=== PATIENT | female | born 1995 | race Caucasian/White ===

== ENCOUNTER 2022-06-18 14:49 | Outpatient (CLI) | payer OTHER, SELFPAY ==
--- NOTE | 2022-06-18 15:00 | CRLHL7_ITS ---
For Patients: As a result of the Century Cures Act, medical imaging exams and procedure reports are released immediately into your electronic medical record. You may view this report before your referring provider. If you have questions, please contact your health care provider. INDICATION: f/u non-visualized facial structures COMPARISON: Ultrasound 06/03/2022 TECHNIQUE: Real time jacobo scale imaging of the fetus was performed. FINDINGS: Sonographic imaging demonstrates a single living intrauterine gestation. Fetus demonstrates a regular cardiac rate of 136 beats per minute. Fetus has a vertex position. The placenta lies posterior. Amniotic fluid volume appears normal. Single deepest vertical pocket: 4.5 cm. The nose, lips, and facial profile appear normal. IMPRESSION: Normal nose, lips and profile. Dictated by Bo Bonilla MD @ 06/19/2022 10:24:11 AM (Electronically Signed)
--- OUTSIDE RECORDS SUMMARY | 2022-06-18 15:17 | XMS_ITS | Clinical Summary ---
:1995 Author Organization [facility] [place] [address] Care Team Providers Name Role Phone Karen Haas MD Primary Care Provider Allergies Active Allergy Reactions Severity Noted Date Comments Cefprozil Rash Medium 07/29/2006 Medications Medication Sig Dispensed Refills Start Date End Date Status vit 28/iron Take 1 Tablet 90 Tablet 3 03/30/2022 Active fum/folic (multivitamin by mouth once folic acid 1 daily. mg) cholecalciferol (Vitamin Take 1 Capsule 90 Capsule 3 2 Active D-3) 2,000 unit (2,000 units) capsuleIndications: by mouth once Vitamin D deficiency daily. Active Problems Problem Noted Date Primigravida in first trimester 03/30/2022 Overview: EDC by 8 week US UTI on first ob labs Plan for Heidi to deliver History of genital herpes Genital herpes 03/06/2022 Insomnia, idiopathic 10/13/2021 Anxiety 05/04/2018 ADD (attention deficit disorder) without hyperactivity 08/24/2011 Estimated Date of Delivery Comments Yes 10/20/2022 Encounters Date Type Specialty Care Team Description 06/12/2022 Telephone Karen Haas Returni ng Call 06/03/2022 Hospital Encounter Karen Haas P rimigravida in first MD trimester 06/03/2022 Travel 06/03/2022 Telephone Karen Haas ROI (Re questing medical MD records be sent to new clinic) 06/01/2022 OB Encounter [facility] Ha[facility] (routine MD follow up) 06/01/2022 Travel 05/05/2022 Telephone Karen Haas Imaging (20 WEEK ANATOMY MD SCAN) 04/29/2022 OB Encounter Karen Haas [facility] MD 04/29/2022 Travel 03/30/2022 OB Encounter Karen Haas [facility] (11w 2d- MD initial) 03/30/2022 Travel from Last 3 Months Immunizations Name Administration Dates Next Due AMB Influenza, IIV3 (Age 6-35 mos) 06/06/2008 (Flu Clinic Only) AMB Influenza, IIV3 (Age >=3 05/11/2013, 04/30/2012, 010 years)(Flu Clinic Only) AMB Influenza, IIV4 PF (=>6 mos 06/16/2014 Flulaval,Fluzone Fluarix)(Flu Clinic Only) DTaP 12/19/2002 DTaP-HIB (TriHIBIT) 03/20/1999, 06/28/1998, 04/24/1998, 02/13/1998 Hepatitis A (Peds) 05/27/2015, 07/11/2014 Hepatitis B (Peds) 12/11/1998, 04/24/1998, 02/13/1998 Human Papilloma Virus Vaccine 02/08/2013, 07/07/2012, 2011 Inactivated Polio Vaccine 12/19/2002 Influenza A (H1N1), Inactivated 07/18/2009 Influenza, IIV3 (Age 6-35 mos) 07/11/1999, 06/03/1999 Influenza, IIV3 (Age >=3 years) 06/23/2011, 05/23/2007, 07/03, 06/08/2006 Influenza, IIV4 04/29/2022, 05/04/2018, 05/24/2016, 05/27/2015 MMR 03/19/2009, 12/19/2002, 03/20/1999 Meningococcal Vaccine (Menveo) 07/11/2014 Oral Polio Vaccine 12/11/1998, 04/24/1998, 02/13/1998 Pneumococcal conj 7-Valent (Prevnar 7) 05/24/2000 Tdap 04/07/2020, 03/19/2009 Varicella Vaccine 03/19/2009, 03/20/1999 Family History Medical History Relation Name Comments Heart Disease Brother 1 Diabetes Brother 2 Heart Disease Brother 3 murmur No Known Problems Daughter Heart Disease Father murmur No Known Problems Half-Brother No Known Problems Half-Sister Thyroid Disease Maternal Aunt X3 No Known Problems Maternal Grandfather No Known Problems Maternal Grandmother No Known Problems Maternal Uncle Asthma Mother Bronchiolitis Mother Diabetes Other cousin No Known Problems Paternal Aunt Brain cancer Paternal Grandfather No Known Problems Paternal Grandmother No Known Problems Paternal Uncle No Known Problems Sister No Known Problems Son Relation Name Status Comments Brother 1 Alive Brother 2 Brother 3 Daughter Father Alive Half-Brother Half-Sister Maternal Aunt Maternal Grandfather Alive Maternal Grandmother Maternal Uncle Mother Alive Other Paternal Aunt Paternal Grandfather Paternal Grandmother Alive Paternal Uncle Sister Alive Son Social History Tobacco Use Types Packs/Day Years Used Date Former Smoker Smokeless Tobacco: Never Used Tobacco Cessation: Counseling Given: Yes Alcohol Use Standard Drinks/Week Comments Not Currently 0 (1 standard drink = 0.6 oz pure alcoho l) Estimated Date of Delivery Comments Yes 10/20/2022 Sex Assigned at Date Recorded Not on file COVID-19 Exposure Response Date Recorded In the last 10 days, have you been in contact with No / Unsu re 06/03/2022 4:47 PM CDT someone who was confirmed or suspected to have Coronavirus/COVID-19? Obstetrics History Para Term AB IAB SAB Ectopic Multiple Living Live Births 1 0 0 0 0 0 0 0 0 0 0 Date Outcome GA Total Labor/2nd/3rd Weight Sex Delivery Anes PTL Adalgisa A 1 A5 Name Clin Labor Current OB Episode Summary Episode Dates Estimated Date of Pregravid Weight TWG (As of ) Delivery 03/06/2022 - Present 10/20/2022 (06/18/2022) Date GA Fund Present FHR Mvmt BP Weight Edema Alb Glu Ket Dil/Eff/S ta 03/13/2022 8w3d Inpatient data not d isplayed here. See encounter summary. 06/03/2022 20w1d Inpatient data not d isplayed here. See encounter summary. Progress Notes 06/01/2022 - 19w6d - Karen Haas MD Doing well. survey US this week. U DUY CULTURE rechecked today. Next visit in 4 weeks. She has decided to deliver in [place]. Plan for next visit in [address] Christian at [facility] in [place]. 04/29/2022 - 15w1d - Karen Haas MD Here with her partner. Feeling better. N ausea and fatigue have resolved. MSAFP discussed, paperwork completed and drawn today. Positive URINE CULTURE discussed, likely skin contaminant. Plan to recheck at next visit as she did not feel she co uld give a sample today. Next visit with me in 4 weeks. Plan for screening US in 4 weeks. 03/30/2022 - w6d - Karen Haas MD FIRST OB VISIT HPI: Lisa Esposito is a 26 y.o. fe male at 10w6d with blancas intrauterine here today for a initial OB exam. Estimated due date is Estimated Date of Delivery: [facility] She is here with her f Chilo wang. She is feeling somewhat better. The fatigue and nausea are improving. She has stopped her Adderall, Zoloft and Trazodone and feels her MH is fine and she is sleeping OK. She is managing her ADHD. We reviewed her OB labs which were notab le for a positive UTI. She was treated with augmentin, but only had 1/2 the medication and needs a refill to completed the antibiotics. Her US was reassuring. Nausea/Vomiting: yes Breast tenderness: yes Fatigue: yes Bleeding: no Taking vitamins: yes AMA: no Previous : no OB History Para Term AB Living 1 0 0 0 0 0 SAB IAB Ectopic Multiple Live Births 0 0 0 0 0 # Outcome Date GA Lbr Bradford/2nd Weight Sex Delivery Anes PTL Lv 1 Current Past Medical History: . Date ? ? Genital herpes ? ? No Significant Past Medical History Past Surgical History: . Laterality Date ? ? TONSIL AND ADENOIDECTOMY ? ? TYMPANOSTOMY ? ? TYMPANOSTOMY removal Family History Problem Relation Age of Onset ? ? Asthma Mother ? ? Bronchiolitis Mother ? ? Heart Disease Father murmur ? ? No Known Problems Sister ? ? Heart Disease Brother ? ? Diabetes Brother ? ? Heart Disease Brother murmur ? ? Thyroid Disease Maternal Aunt X3 ? ? Brain cancer Paternal Grandfather 69 ? ? Diabetes Other cousin Social History Tobacco Use ? ? Smoking status: Former Smoker ? ? Smokeless tobacco: Never Used Substance Use Topics ? ? Alcohol use: Not Currently Current Outpatient Medications Medication Sig ? ? amoxicillin-clavulanate 875-125 mg tablet (AUGMENTIN) Take 1 Tablet by mouth two times daily with meals for 5 days. ? ? cholecalciferol (Vitamin D-3) 2,000 unit capsule Take 1 Capsule (2,000 units) by mouth once daily. ? ? vit 28/iron fum/folic (multivitamin folic acid 1 mg) Take 1 Tablet by mouth once daily. No current facility-administered medicat ions for this visit. Medications have been reviewed by me and are current to the best of my knowledge and ability. ALLERGIES Cefprozil MENTAL HEALTH HISTORY History of psychiatric diagnosis: Anxiet y Current mental health provider: No Currently taking any psychiatric medicat ions? Not Applicable INFECTION HISTORY Current Drug Use: none Relevant infection history from OB [facility] ionnaire: none REVIEW OF SYSTEMS Comprehensive ROS complete and negative other than noted in HPI and on OB Questionnaire. PHYSICAL EXAM BP 100/62 (Cuff Site: Right Arm, Positio n: Sitting, Cuff Size: Adult Regular) Pulse 70 Wt 59.9 kg (132 lb) LMP 01/10/2022 (Exact Date) BMI 24.14 kg/m?? General Appearance: Alert, appropriate a ppearance for age. No acute distress. HEENT Exam: Grossly normal. Neck/Thyroid Exam: Supple, no masses, no martin or enlargement. Lungs: Clear to auscultation bilaterally . Breast Exam: Not indicated. Cardiovascular Exam: Regular rate and rh ythm. S1, S2, no murmur. Abd: Soft, non-tender, no masses or orga nomegaly. Skin: no rashes or lesions. Lymphatics: no nodes palpable. Psychiatric Exam: Alert and oriented x 3 , appropriate affect. ASSESSMENT/PLAN 26 y.o. at 10w6d with blancas intrauterine . ICD-10-CM 1. Primigravida in first trimester Z34.0 1 2. UTI (urinary tract infection), uncomp licated N39.0 amoxicillin-clavulanate 875-125 mg tablet (AUGMENTIN) 3. Vitamin D deficiency E55.9 cholecalci ferol (Vitamin D-3) 2,000 unit capsule 4. ADD (attention deficit disorder) with out hyperactivity F98.8 Satisfactory exam. Demonstrates appropriate and health-seeking behaviors toward her . Verbalizes good understanding of care schedule and the importance of coming to each visit as scheduled. Start/continue v itamins. Reviewed labs. She was encouraged to call the office with any questions or concerns. Body mass index is 24.14 kg/m??. Diet and expected weight gain discussed with patient. DEPRESSION SCREEN PHQ Score and Severity Intervention: Not Depressed Doing well OB labs reviewed. Vitamin D sent along with augmentin. Plan for OB visit with Dr. Gordon next [facility] and I will manage her until Dr. Gordon returns from maternity leave. Seek care if worsening MH. SAB reviewed. Karen Haas MD 03/06/2022 - 7w3d - Dinora Goodwin, RN See staff note. Dinora Goodwin RN .................. .. 03/06/2022 10:39 AM Last Filed Vital Signs Vital Sign Reading Time Taken Comments Blood Pressure 120/70 06/01/2022 5:51 PM CDT Pulse 80 06/01/2022 5:51 PM CDT Temperature 36.9 ??C (98.5 ??F) 10/13/2021 6:16 PM CDT Respiratory Rate 16 10/13/2021 6:16 PM CDT Oxygen Saturation 99% 06/01/2022 5:51 PM CDT Inhaled Oxygen Concentration - - Weight 67.4 kg (148 lb 8 oz) 06/01/2022 5:51 PM CDT Height 157.5 cm (5' 2) 03/06/2022 10:05 AM CDT Body Mass Index 27.16 03/06/2022 10:05 AM CDT Plan of Treatment Health Maintenance Due Date Last Done Comments COVID-19 vaccine series (3 - 06/07/2021 04/12/2021, 021 Booster for Pfizer series) Depression screening for age 12+ 12/03/2022 12/03/2021, , 08/06/2021, Additional history exists BMI (ht and wt on same day) for 03/06/2023 03/06/2022, 09/30, age 18+ 10/21/2020, Additional history exists Chlamydia for age 16-24 03/13/2023 03/13/2022, 10/13/2021, 10/21/2020, Additional history exists Pap test for age 21-65 10/22/2023 10/21/2020 Tetanus booster 04/07/2030 04/07/2020, 03/19/2009 HPV series for age 9-26 Completed 02/08/2013, 07/07/2012, 03/23/2012 Tdap Completed 04/07/2020, 03/19/2009 Hepatitis C screening for age Completed 03/13/2022 18-79 Influenza for age 9-49 Completed 04/29/2022, 05/04/2018, 05/24/2016, Additional history exists Procedures Procedure Name Priority Date/Time Associated Diagnosis Comme [facility] US OB BASIC Routine 06/03/2022 5:07 PM Primigravida in f irst Results for this ANATOMY SCREEN CDT trimester procedure are in SINGLE TA the results section. URINE CULTURE Routine 06/01/2022 6:08 PM Urinary tract Results for this CDT infection in mother procedur e are in during second the results trimester of section. AFP TETRA Routine 04/29/2022 12:21 Primigravida in Results for this PM CDT second trimester procedure a re in the results section. from Last 3 Months Results US OB BASIC ANATOMY SCREEN SINGLE TA (06/03/2022 5:07 PM CDT) Anatomical Region Laterality Modality , 2or 3 TRIMESTER Ult rasound Specimen (Source) Anatomical Collection Method Collection Time Re ceived Time Location / / Volume Laterality 06/04/2022 7:25 AM CDT Impressions 06/04/2022 7:25 AM CDT 1. Single fetus with ultrasound dating of 20 weeks 5 days, LILY 10/16/2022. There has been appropriate interval growth since the previous study. LILY on the previous ultrasound 10/20/2022. 2. No intrinsic abnormalities noted on a natomic survey. facial features were not optimally visualized. Dictated by Judd Jimenez MD @ 06/04/2022 7:25: 41 AM (Electronically Signed) Narrative 06/04/2022 7:25 AM CDT For Patients: ??As a result of the Cures Act, medical imaging exams and procedure report s are released immediately into your [facility] medical record. ??You may view this report before your referring provider. ??If you have questions, please contact your health care provider. INDICATION: Ultrasound of anatomy. TECHNIQUE: Ultrasound OB pelvis transabdominal. Donna l-time jacobo-scale imaging of the fetus was performed as well as color Doppler and spectral Doppler analysis of the umbilical artery. COMPARISON: 03/13/2022 FINDINGS: Sonographic imaging demonstrates a singl e living intrauterine gestation. Fetus demonstrates a regular cardiac rate of 138 beats per minute. Fetus has multiple position changes. The placenta lies posteri or without evidence of placenta previa. Amniotic fluid volume appears normal. Single deepest vertical pocket: 5.4 cm. Cervical length 4.5 cm. Cord S/D Doppler 2.7 which is normal. The composite ultrasound gestational age is calculated at 20 weeks 5 days with an estimated sonographic due date of 10/16/2022. The estimated weight is 364 grams which lies at the 71 %. The following biometric measurements wer e obtained: Biparietal diameter: 4.8 cm, 20 weeks 6 days. Head circumference: 18.2 cm, 20 weeks 5 days. Abdominal circumference: 15.7 cm, 21 wee ks 0 days. Femur length: 3.2 cm, 20 weeks 2 days. On anatomic survey, there is a normal ap pearance of the cerebral ventricles, cisterna magna and cerebellum. The nose and lips not well seen due to position, although the facial profile appears nor mal. The cervical, thoracic and lumbar s pines are well visualized and appear normal. There is a normal four-chamber heart and the left and right ventricular outflow tracts appear normal. diaphragm , stomach, kidneys and bladder appear no rmal. There is a normal three-vessel cord and cord insertion site. The four extremities appear normal. Procedure Note Art Jimenez MD - 06/04/2022F ormatting of this note might be different from the original. For Patients: As a result of the ntury Cures Act, medical imaging exams and procedure reports are released immediately into your electronic medical record. You may view this report before your referring provider. If you have questions, please contact [facility] care provider. INDICATION: Ultrasound of anatomy. TECHNIQUE: Ultrasound OB pelvis transabdominal. Donna l-time jacobo-scale imaging of the fetus was performed as well as color Doppler and spectral Doppler analysis of the umbilical artery. COMPARISON: 03/13/2022 FINDINGS: Sonographic imaging demonstrates a singl e living intrauterine gestation. Fetus demonstrates a regular cardiac rate of 138 beats per minute. Fetus has multiple position changes. The placenta lies posterior without evidence of placenta previa. Amniotic fl uid volume appears normal. Single deepest vertical pocket: 5.4 cm. Cervical length 4.5 cm. Cord S/D Doppler 2.7 which is normal. The composite ultrasound gestational age is calculated at 20 weeks 5 days with an estimated sonographic due date of 10/16/2022. The estimated weight is 364 grams which lies at the 71 %. The following biometric measurements wer e obtained: Biparietal diameter: 4.8 cm, 20 weeks 6 days. Head circumference: 18.2 cm, 20 weeks 5 days. Abdominal circumference: 15.7 cm, 21 wee ks 0 days. Femur length: 3.2 cm, 20 weeks 2 days. On anatomic survey, there is a normal ap pearance of the cerebral ventricles, cisterna magna and cerebellum. The nose and lips not well seen due to position, although the facial profile appears normal. The cervical, thoracic and lumbar spines are well visualized and appear normal. There is a normal four-chamber heart and the left and right ventricular outflow tracts appear normal. diaphragm, stomach, kidneys and bladder appear normal. There is a normal three-vessel cord and cord insertion site. The four extremities appear normal. IMPRESSION: 1. Single fetus with ultrasound dating o f 20 weeks 5 days, LILY 10/16/2022. There has been appropriate interval growth since the previous study. LILY on the previous ultrasound 10/20/2022. 2. No intrinsic abnormalities noted on a natomic survey. facial features were not optimally visualized. Dictated by Judd Jimenez MD @ 06/04/2022 7:25: 41 AM (Electronically Signed) Karen Haas MD (ABNORMAL) URINE CULTURE (06/01/2022 6:08 PM CDT) [facility] Method Time Signature CULTURE RESULT (A) 06/04/2022 [facility] 6:40 AM CDT [facility] TRAL LABORATORY CULTURE 50,000-100,000 06/04/2022 [facility] CFU/mL 6:40 AM CDT [facility] Escherichia TRAL coli LABORATORY Specimen Anatomical Collection Method Collection Time Receive d Time (Source) Location / / Volume Laterality Urine URINE SPECIMEN / Non-Blood / 06/01/2022 6:08 PM 06/01 6:08 Unknown Unknown CDT PM CDT Organism Antibiotic Method Susceptibility Escherichia coli TRIMETHOPRIM/SULF >=16/304: R Escherichia coli AMPICILLIN <=2: S Escherichia coli CEFAZOLIN-UC <=4: S Comment: Cefazolin-UC interp retations are for therapy of uncomplicated UTIs due to E.coli, K.pneumoniae, or P.m irablis. Cefazolin breakpoint is used as a surrogate to predict results for the oral agents - cefdinir, cefuroxime, and cephalexin, when used for therapy of uncompli cated UTIs due to E coli, K, pneumoniae, and P. mirabilis. The FDA recommend s cefadroxil susceptibility can be deduced from cefazolin. Escherichia coli GENTAMICIN <=1: S Escherichia coli CEFTRIAXONE <=1: S Escherichia coli CEFTAZIDIME <=1: S Escherichia coli LEVOFLOXACIN <=0.12: S Escherichia coli CIPROFLOXACIN <=0.25: S Escherichia coli PIPERACILLIN/TAZO <=4: S Escherichia coli AMPICILLIN/SULBACTAM <=2: S Escherichia coli CEFEPIME <=1: S Escherichia coli TOBRAMYCIN <=1: S Escherichia coli MEROPENEM <=0.25: S Escherichia coli NITROFURANTOIN 32: S Karen Haas MD MICROBIOLOGY Performing Organization Address City/State/ZIP Code Phon e Number [facility] [address] [place] [address] [facility] LABORATORY AFP TETRA [[id number]] (04/29/2022 12:21 PM CDT) [facility] Method Time Signature Results AFP Report 05/01/2022 [facility] 11:06 PM CDT [facility] Test Results *Screen 05/01/2022 [facility] AFP Negative* 11:06 PM CDT [facility] GA on Saravanan 15.1 WEEKS 05/01/2022 [facility] Date 11:06 PM T [facility] GA Based On LILY 05/01/2022 [facility] 11:06 PM CDT [facility] Comment: 10/20/2022 Mat [age] LILY [age] 05/01/2022 11:06 PM [facility] ([facility]) Race AFP 05/01/2022 11:06 PM [facility] Weight AFP 138 lbs 05/01/2022 11:06 PM [facility] Insulin Dep AFP No 05/01/2022 11:06 PM [facility] Multiple Gest AFP No 05/01/2022 11:06 PM [facility] AFP Value 20.2 ng/mL 05/01/2022 11:06 PM [facility] AFP MoM 0.61 05/01/2022 11:06 PM [facility] hCG Value 35094 mIU/mL 05/01/2022 11:06 PM [facility] hCG MoM 0.54 05/01/2022 11:06 PM [facility] uE3 Value 0.86 ng/mL 05/01/2022 11:06 PM [facility] uE3 MoM 1.05 05/01/2022 11:06 PM [facility] DAYANA Value 139.60 pg/mL 05/01/2022 11:06 PM [facility] DAYANA MoM 0.77 05/01/2022 11:06 PM [facility] OSBR Risk 1 IN AFP [id number] 05/01/2022 11:06 PM [facility] DSR 2nd [place] 1 [place] [id number] 05/01/2022 11:06 PM [facility] DSR By Age 1 IN 1039 05/01/2022 11:06 PM [facility] [facility] T18 Risk Not increased 05/01/2022 11:06 PM [facility] T18 By Age 1:4050 05/01/2022 11:06 PM [facility] Interp AFP Comment 05/01/2022 11:06 PM [facility] Comment: Interpretation: Screen Negative This result is screen negative for OSB, Down Syndrome and Trisomy 18. The AFP MoM and patient spec ific risks calculated are based on the gestational age and the cli nical information provided. This test can identify up to 80% of open neural tube defects. Closed neural tube defects and some open defects may not be detected by this test. ??The combination of mater nal age, AFP, hCG, uE3, and DAYANA identifies 75-80% of Down Synd moises. ??The combination of maternal age, AFP, hCG and uE3 identifie s 60% of Trisomy 18 pregnancies. ??The [place] [employer] b[employer]etric[employer]nec[employer] recommends amniocentesis be offered to w omen age 35 and older. Recalculations are not recommended when gestational dating by LMP and ultrasound are within 10 days. Comment AFP Comment 05/01/2022 11:06 PM CDT [facility] Comment: Christa Gauthier, Ph.D., [facility] Director References: Available Upon Request. Multiples Of Median Cutoffs ? Abbrev iation Definitions ?For AFP Elevations ?I DD- Insulin Dep Diabetes Blancas ??2.5 ?? Black ??2.8 ? OSB R- Open Spina Bifida IDD ?2.0 ?? Twins ??4.5 ?Risk DSR Cutoff 1:270 ? DSR- Down Syndrome Risk T18 Cutoff 1:100 ? T18- Trisomy 18 For further inquiries contact [employer] at [phone]. This test was developed and its performa nce characteristics determined by [employer]. It has not been c leared or approved by the Food and Drug Administration. Specimen Anatomical Collection Method / Collection Time Recei maribel Time (Source) Location / Volume Laterality Blood BLOOD SPECIMEN / Venipuncture / 04/29/2022 12:21 04/29 Unknown Unknown PM CDT 12:28 PM CDT Narrative [facility] - 05/01/2022 11:06 PM CDT Performed at: ??01 - [facility] [address] [facility], [place], [place] ??[address] [address] [employer] Worker: Milo [facility], Phone: ??[phone] Karen Gudelia Waldo MD SEND OUTS Performing Organization Address City/State/ZIP Code Phon e Number [facility] [address], [place] [address] [facility] ([facility]) from Last 3 Months Insurance Payer Benefit Plan / Subscriber ID Effective Dates Phone Addre ss Type Group [employer] [id number] 2020-Prese [address] [place] [address] [facility] [id number] 2019-Presen [address] [address] [place] [address] y L y (Home) ROMINA REYES [phone] [employer] Employer 06/12/1911 ATTN [employer] [id number] RESOURCES (Home) [address] [place] [address] DRIVE (Work) ROMINA REYES [phone] Care Teams Physician President Relationship Specialty Start Date End Date Karen Haas MD PCP - General 05/08/[address] [place] [address] Arik ROMINA DENNEY [id number]
== END 2022-06-18 14:50 | disposition home or self-care (01) ==
LOC: US 14:54
PROVIDERS: PCP Family Medicine; Visit Provider Registered Nurse
DX: O35.8XX0 Maternal care for other (suspected) fetal abnormality and damage, not applicable or unspecified (principal)
CPT/HCPCS: 76816; 87086; 87186

== ENCOUNTER 2022-07-08 08:09 | Outpatient (CLI) | payer OTHER, SELFPAY ==
--- OUTSIDE RECORDS SUMMARY | 2022-07-08 08:15 | XMS_ITS | Clinical Summary ---
:1995 Author Organization [employer] [place] [address] Care Team Providers Name Role Phone Karen [...] Encounters Date Type Specialty Care Team Description 06/18/2022 Orders Only Scanner 1 scan: (1-Ord) [facility] OB FOLLOW UP, 1 08/18/2021 06/12/2022 Telephone Karen Haas Returni ng Call [...] Haas Prenata l Care MD 04/29/2022 Travel from Last 3 Months Immunizations Name [...] Assigned at Date Recorded Not on file Obstetrics History Para Term AB IAB SAB Ectopic Multiple Living Live Births 1 0 0 0 0 0 0 0 0 0 0 Date Outcome GA Total Labor/2nd/3rd Weight Sex Delivery Anes PTL Adalgisa A 1 A5 Name Clin Labor Current OB Episode Summary Episode Dates Estimated Date of Pregravid Weight TWG (As of ) Delivery 03/06/2022 - Present 10/20/2022 (07/08/2022) Date GA Fund Present FHR Mvmt BP [...] weeks. She has decided to deliver in [place]. Plan for next visit in [address] Christian at [facility] in [place]. 04/29/2022 - 15w1d - Karen Haas MD [...] screening US in 4 weeks. 03/30/2022 - 10w6d - Karen Haas MD FIRST OB VISIT HPI: Lisa Esposito is a 26 y.o. fe male at 10w6d with blancas intrauterine here today for a initial OB exam. Estimated due date is Estimated Date of Delivery: 10/20/22 based on u ltrasound dating. She is here with her f [...] Plan for OB visit with Dr. Gordon [facility] and I will manage her until Dr. Gordon returns from maternity leave. Seek care if worsening MH. SAB reviewed. Karen Haas MD 03/06/2022 - 7w3d - Dinora Goodwin RN See staff note. Dinora Goodwin RN [...] 02/08/2013, 07/07/2012, 03/23/2012 Tdap Completed 04/07/2020, 03/19/2009 HIV for age 15-65 Completed 03/13/2022 Hepatitis C screening for age Completed 03/13/2022 18-79 Influenza for age 9-49 Completed 04/29/2022, 05/04/2018, 05/24/2016, Additional history exists Procedures Procedure Name Priority Date/Time Associated Diagnosis Comme nts SCAN-ULTRASOUND 06/18/2022 12:00 Results for this REPORT AM SENIOR MANUFACTURING ENGINEER procedure are i n the results section. US OB BASIC Routine 06/03/2022 5:07 PM [...] results section. from Last 3 Months Results SCAN-ULTRASOUND REPORT (06/18/2022 12:00 AM SENIOR MANUFACTURING ENGINEER) Narrative This result has an attachment that is no t available. Scanner OTHER US OB BASIC ANATOMY SCREEN SINGLE TA [...] report s are released immediately into your [facility] medical record. ??You may view this report before your referring provider. ??If you have questions, please contact your health care provider. INDICATION: Ultrasound of anatomy. TECHNIQUE: Ultrasound OB pelvis transabdominal. [place] l-time jacobo-scale imaging of the fetus was [...] provider. If you have questions, please contact [facility] care provider. INDICATION: Ultrasound of anatomy. TECHNIQUE: Ultrasound OB pelvis transabdominal. [place] l-time jacobo-scale imaging of the fetus was [...] (ABNORMAL) URINE CULTURE (06/01/2022 6:08 PM CDT) [facility] Method Time Signature CULTURE RESULT (A) 06/04/2022 [facility] [place] 6:40 AM CDT [facility] TRAL LABORATORY CULTURE 50,000-100,000 06/04/2022 [facility] CFU/mL 6:40 AM CDT [facility] Escherichia TRAL [...] Address City/State/ZIP Code Phon e Number STACEY [place] [address] [place] [address] LAB[facility]ATORY[facility] LABORATORY AFP TETRA [[id number]] (04/29/2022 12:21 PM CDT) [facility] Method Time Signature Results AFP Report 05/01/2022 [facility] 11:06 PM CDT [facility] ([facility]) Test Results *Screen 05/01/2022 [facility] AFP Negative* 11:06 PM CDT [facility] ([facility]) GA on Saravanan 15.1 WEEKS 05/01/2022 [facility] Date 11:06 PM CDT [facility] ([facility]) GA Based On LILY 05/01/2022 [facility] 11:06 PM CDT [facility] (CET) Comment: 10/20/2022 Mat [age] LILY [age] 05/01/2022 11:06 PM [facility] (CET) Race AFP 05/01/2022 11:06 PM [facility] (CET) Weight AFP 138 lbs 05/01/2022 11:06 PM [facility] Insulin Dep AFP No 05/01/2022 11:06 PM [facility] (CET) Multiple Gest AFP No 05/01/2022 11:06 PM [facility] (CET) AFP Value 20.2 ng/mL 05/01/2022 11:06 PM [facility] (CET) AFP MoM 0.61 05/01/2022 11:06 PM [facility] [place] [facility] ([facility]) hCG Value 15373 mIU/mL 05/01/2022 11:06 PM [facility] [place] [...] TESTING (CET) OSBR Risk 1 IN AFP [id number] 05/01/2022 11:06 PM [facility] [place] [facility] ([facility]) DSR 2nd [place] [id number] 05/01/2022 11:06 PM [facility] [place] [facility] ([facility]) DSR By Age 1 IN 1039 05/01/2022 11:06 PM [facility]) [...] s 60% of Trisomy 18 pregnancies. ??The [employer] b[employer] recommends amniocentesis be offered to w omen age 35 and older. Recalculations are not recommended when gestational dating by LMP and ultrasound are within 10 days. Comment AFP Comment 05/01/2022 11:06 PM CDT [facility] Comment: Christa Gauthier, Ph.D., [facility] Director References: Available Upon Request. Multiples Of Median Cutoffs ? Abbrev iation Definitions ?For AFP Elevations ?I DD- Insulin Dep Diabetes Blancas ??2.5 ?? Black ??2.8 ? OSB R- Open Spina Bifida IDD ?2.0 ?? Twins ??4.5 ?Risk DSR Cutoff 1:270 ? DSR- Down Syndrome Risk T18 Cutoff 1:100 ? T18- Trisomy 18 For further inquiries contact [employer] at [phone]. This test was developed and its performa nce characteristics determined by [employer]. It has not been c leared or approved by the Food and Drug Administration. Specimen Anatomical Collection Method / Collection Time Recei maribel Time (Source) Location / Volume Laterality Blood BLOOD SPECIMEN / Venipuncture / 04/29/2022 12:21 04/29 Unknown Unknown PM CDT 12:28 PM CDT Narrative [facility] (CET) - 05/01/2022 11:06 PM CDT Performed at: ??01 - [facility] [address], [place] ??[address] Employee Communications Intern: Sarah Bethashleygriselda Boone [facility], Phone: ??[phone] Karen Haas MD SEND OUTS Performing Organization Address City/State/ZIP Code Phon e Number [facility] [address], [place] [address] ESOTERIC TESTING (CET) from Last 3 Months Insurance Payer Benefit Plan / Subscriber ID Effective Dates Phone Addre ss Type Group [employer]OSS [employer] OF [id number] 2020-Prese [address] [facility] [place] [address] [facility] [id number] 2019-Presen [address] [address] [place] [address] y L y (Home) ROMINA REYES [phone] [employer] Occ Employer 06/12/1911 [facility] [employer] [id number] RESOURCES (Home) [address] [place] [address] DRIVE (Work) ROMINA REYES [phone] Care Teams Tie Sawyer Relationship Specialty Start Date End Date Karen Haas MD PCP - General 05/08/[address] [place] [address] [place] Lau [id number]
== END 2022-07-08 08:10 | disposition home or self-care (01) ==
PROVIDERS: PCP Family Medicine; Visit Provider Advanced Practice Midwife
DX: Z34.80 Encounter for supervision of other normal pregnancy, unspecified trimester (principal)
CPT/HCPCS: 87086

== ENCOUNTER 2022-07-31 14:53 | Outpatient (CLI) | payer OTHER, SELFPAY ==
[2022-08-02 13:38] LABS: Rapid Plasma Reagin (RPR) Non Reactive (Non Reactive)
== END 2022-07-31 14:54 | disposition home or self-care (01) ==
LOC: NFLDREF 14:53
PROVIDERS: PCP Family Medicine; Visit Provider Advanced Practice Midwife
DX: Z34.00 Encounter for supervision of normal first pregnancy, unspecified trimester (principal)
CPT/HCPCS: 86592

== ENCOUNTER 2022-09-22 14:17 | Outpatient (CLI) | payer OTHER, SELFPAY ==
[2022-09-23 12:12] LABS: Strep B DNA Probe NEGATIVE (Negative)
[2022-09-23 12:26] LABS: Strep B Pen/Amox Allergy No
== END 2022-09-22 14:18 | disposition home or self-care (01) ==
PROVIDERS: PCP Family Medicine; Visit Provider Advanced Practice Midwife
DX: Z34.03 Encounter for supervision of normal first pregnancy, third trimester (principal); Z3A.36 36 weeks gestation of pregnancy
CPT/HCPCS: 87081; 87653

== ENCOUNTER 2022-09-30 13:37 | Outpatient (CLI) | payer OTHER, SELFPAY ==
--- NOTE | 2022-09-30 14:00 | CRLHL7_ITS ---
For Patients: As a result of the Cures Act, medical imaging exams and procedure reports are released immediately into your electronic medical record. You may view this report before your referring provider. If you have questions, please contact your health care provider. INDICATION: Growth check. TECHNIQUE: Transabdominal obstetrical ultrasound. FINDINGS: Single living intrauterine in vertex presentation. Posterior placenta. heart rate 109 beats per minute. Normal amniotic fluid. Single deepest pocket measurement 8.9 cm. Normal amniotic fluid volume index of 20.3 cm. Biparietal diameter 9.8 cm, 40 weeks 0 days, greater than the 97th percentile. Head circumference 35.1 cm, 40 weeks 6 days, 92nd percentile. Abdominal circumference 36.1 cm, 40 weeks 0 days, greater than the 97th percentile. Femur length 7.0 cm, 35 weeks 6 days, 12th percentile. Composite calculated ultrasound age 39 weeks 1 days with a sonographic due date of October 06, 2022. Estimated weight of 3728 g which lies at the 93rd percentile. The head to abdominal circumference ratio is 0.97 (0.87-1.06). The femur length to abdominal circumference ratio is 19.32 (20.0-24.0). IMPRESSION: Single living intrauterine with a composite calculated ultrasound age 39 weeks 1 day with a sonographic due date of October 06, 2022. Estimated weight is at the 93rd percentile. Dictated by Scooter Georges MD @ 09/30/2022 3:58:14 PM (Electronically Signed)
== END 2022-09-30 13:38 | disposition home or self-care (01) ==
LOC: US 13:40
PROVIDERS: PCP Family Medicine; Visit Provider Advanced Practice Midwife
DX: O36.8330 Maternal care for abnormalities of the fetal heart rate or rhythm, third trimester, not applicable or unspecified (principal); Z3A.37 37 weeks gestation of pregnancy
CPT/HCPCS: 76816

== ENCOUNTER 2022-09-30 15:34 | Outpatient (CLI) | payer OTHER, SELFPAY ==
[2022-09-30] VITALS (21 sets, daily range): BP systolic 85–123; BP diastolic 49–77; PULSE 70–93; RESP 16–18; TEMP 36.6–37.1; O2SAT 98–99; BMI 32.5
--- NOTE | 2022-09-30 16:36 | CRLHL7_ITS ---
For Patients: As a result of the Century Cures Act, medical imaging exams and procedure reports are released immediately into your electronic medical record. You may view this report before your referring provider. If you have questions, please contact your health care provider. INDICATION: Follow up growth done today. TECHNIQUE: Ultrasound OB pelvis transabdominal. Real-time jacobo-scale imaging of the fetus was performed without stress testing. COMPARISON: September 30, 2022. FINDINGS: Sonographic imaging demonstrates a single living intrauterine gestation. Fetus demonstrates a regular cardiac rate of 110 beats per minute. Fetus has a vertex orientation. Amniotic fluid volume single deepest pocket 10.2 cm 2/2. ANGELICA of 30.0 centimeters. motion 2/2. tone 2/2. breathing movements 2/2. IMPRESSION: Single viable intrauterine with a biophysical profile 03/09. Re-demonstration of borderline low heart rate of 110 beats per minute, similar to prior study. Interval change amniotic fluid index which is currently 30.0 centimeters, previously 20.3 centimeters earlier today, possibly related to positioning. Dictated by Art Humphrey MD @ 09/30/2022 5:18:50 PM (Electronically Signed)
[2022-09-30 18:18] LABS: Basophils Percent Auto 0.3 % (0.0-3.0); Eosinophils Percent Auto 0.3 % (0.0-7.0); Hematocrit 37.2 % (33.0-51.0); Hemoglobin* 11.9 gm/dL (12.0-16.0); Immature Granulocytes Pct Auto 0.5 %; Lymphocytes Percent Auto 22.7 % (20-44); Mean Corpuscular HGB Conc 32 gm/dL (32-36); Mean Corpuscular Hemoglobin 25 pg (26-34); Mean Corpuscular Volume 79 fL (80-100); Monocytes Percent Auto 7.7 % (0.0-11.0); Neutrophils Percent Auto 68.5 % (42.0-72.0); Platelet Count* 179 K/uL (140-440); RDW Coefficient of Variation % 15.5 % (11.5-15.5); Red Blood Count 4.72 m/uL (4.00-5.20)
[2022-09-30 18:19] LABS: Slide Review Reflex No
[2022-09-30 18:41] LABS: Hemoglobin A1C* 5.17 % (0-5.6)
--- NOTE | 2022-09-30 19:16 | P.OBHP_ITS ---
OB - H&P; HPI Antepartum History of Present Illness Date Seen: 09/30/22 Chief complaint: Maternity Narrative: Lisa Esposito is a 26 year old at 37 4/7 weeks gestation that was seen in clinic earlier today for Growth US, per her request, and OB visit. heart rate during her US was noted to be low, documented 109. Low FHR was confirmed by doppler in clinic and patient was transferred to NST room which was initiated by an RN. CNM was called to assess FHR which was identified to be low 100's with episodes in the upper 90's that did not seem to resolve with position changes. She was immediately transferred to Labor and Delivery for further evaluation. Patient reports she has felt active movement. She denies contractions, abdominal pain, or vaginal bleeding. She has eaten and drink fluid today, it has been a few hours since she has had some water. Initial heart rate baseline upon arrival to Labor and Delivery was 105. Ultrasound today identified EFW 93%ile with SDP 8.9 with normal ANGELICA 20.3. OB Problem List 1. H/o anxiety and ADD. D/c'd zoloft, trazodone and Adderall at start of . Doing well without meds 2. H/o genital HSV. NEEDS: prophylactic tx at 36 weeks, started at 34 weeks 3. H/o abnormal pap in 2016 per pt report. Denies colp or leep. Normal pap 2021 4. UTI, early . Treated with Augmentin. Repeat culture showed E Coli from 06/18/22, Treated with Keflex. Test of cure Negative 07/09/22. History of Present Dating criteria: based on LMP Labs Narrative: Blood type AB-positive Antibody screen negative Hemoglobin 12.7 Platelets 244 Rubella immune at 296 RPR negative Hepatitis-B antigen negative HIV negative Chlamydia negative Gonorrhea: Negative Urine culture on 06/01/2022 E coli. Hepatitis C nonreactive TSH 1.13 Genetic screening performed: 04/30/2022 negative for OSB, down syndrome, and trisomy 18. Pap on 10/21/2020: Negative for intraepithelial lesion or malignancy. First-trimester ultrasound performed on 03/13/2022: Normal 1st trimester OB ultrasound. Gestational age 8 weeks 3 days with a due date of 10/20/2022. Ultrasound findings correlate with clinical menstrual age. LMP 01/10/2022. LILY 10/17/2022. anatomy scan on 06/04/2022 was normal: Appropriate interval growth since previous study, no intrinsic abnormalities noted. facial features were not optimally visualized. Meds Home Medications and Allergies Home Medications Medication Instructions Recorded Confirmed Type cholecalciferol (vitamin D3) 25 25 mcg PO QDAY 06/10/22 09/30/22 History mcg (1,000 unit) capsule docosahexaenoic acid 200 mg 200 mg PO DAILY 06/10/22 09/30/22 History capsule ( DHA) Allergies Allergy/AdvReac Type Severity Reaction Status Date / Time ceprazil Allergy Mild Rash Uncoded 09/30/22 14:30 pet dander Allergy Mild Sneezing Uncoded 09/30/22 14:30 OB - H&P: Exam Physical Exam: Vital signs: Temp Pulse Resp BP Pulse Ox 98.7 F 93 16 123/77 99 09/30/22 15:41 09/30/22 15:40 09/30/22 15:41 09/30/22 15:40 09/30/22 16:46 OB - Results Labs Labs: Short CBC 09/30/22 Range/Units 16:15 WBC 11.50 H (4.50-11.00) K/uL Hgb 11.9 L (12.0-16.0) gm/dL Hct 37.2 (33.0-51.0) % Plt Count 179 (140-440) K/uL Imaging OB US: Radiologist's impression: IMPRESSION: Single viable intrauterine with a biophysical profile 03/09. Re-demonstration of borderline low heart rate of 110 beats per minute, similar to prior study. Interval change amniotic fluid index which is currently 30.0 centimeters, previously 20.3 centimeters earlier today, possibly related to positioning. OB - A/P Antepartum Assessment and Plan (1) Abnormal heart rate affecting : Status: Acute (2) Polyhydramnios affecting in third trimester: Problem details: Mild, ANGELICA 30 on 10/01/22 Status: Acute Plan ASSESSMENT:? 26 at 37 4/7 weeks gestation? Abnormal heart rate * Consulted Dr. Umaña for abnormal FHR. She recommended BPP, 03/09. Initially agreed with IOL due to concern for FHR with low baseline, however reassuring FHR tracing with good variability and accelerations led Dr. Umaña to consult with [facility]. They reported that sometimes fetus heart rates do reside in the low 100's without cause for concern in the setting of no known cause or concerns. They recommended close surveillance and continuation of . Dr. Umaña agreed with plan of overnight observation of FHR and return to clinic Wednesday for BPP if FHR remains overall reassuring. Discussed this with patient and partner, they were initially agreeable to IOL but feel comfortable with plan of observation overnight, d/c tomorrow, and close follow-up. Newly diagnosed Mild Polyhydramnios, ANGELICA 30. * Was previously 20.3 in clinic earlier today. BPP today reassuring. Plan BPP every week until delivery, IOL recommended at 39 0/7-39 6/7. With new findings and low FHR today, recommend BPP Wednesday 3/3 in clinic. ? PLAN:? 1. Observation overnight for FHR monitoring. If reassuring can consider discharge home with follow-up plan listed above. CBC and type and screen obtained. 2. Monitoring continuously while in observation. 3. Would consider IOL with any indication or concern. Nurses will notify provider if FHR below 100. 4. Anticipate discharge home tomorrow. Additional Plan Plan: other (Continuous monitoring with observation)
[2022-09-30] MEDS: ACETAMINOPHEN 500 MG TABLET 1000 MG PO (19:33)
[2022-10-01 04:25] VITALS: RESP 16; TEMP 37.1
[2022-10-01 04:28] VITALS: BP 111/61; PULSE 73
--- NOTE | 2022-10-01 07:27 | W.PM.OB.MED ---
DS: Providers Provider Time Seen by Provider: 07:27 Date Seen: 10/01/22 Date of admission: 09/30/22 16:55 Primary care physician: Karen Haas MD Admitting Clinician: Tabitha Jarvis CNM Attending Physician on discharge: Tabitha Jarvis CNM Date of Discharge: 10/01/22 DS: Diagnosis Discharge Diagnosis (1) Abnormal heart rate affecting : Status: Acute (2) Polyhydramnios affecting in third trimester: Status: Acute Problem details: Mild, ANGELICA 30 on 10/01/22 Discharge Plan Discharge Disposition: Home, Self-Care Date of Admission: 09/30/22 16:55 Primary Care Provider: Karen Haas Condition: Stable Anticipated Discharge Date/Time: 10/01/22 07:36 Discharge Medications: Continued cholecalciferol (vitamin D3) 25 mcg (1,000 unit) capsule 25 mcg PO QDAY DHA 200 mg capsule 200 mg PO DAILY valacyclovir [Valtrex] 500 mg tablet 500 mg PO BID Qty: 60 1RF Discharge Orders: Discharge Order (Routine); Ordered 10/01/22 Ordered By: Marisela Mcbride Patient Education: OB Undelivered at 35 weeks IUP or more Additional Instructions: Continue to monitor for kick counts. Call/be seen immediately if change is noted. BPP 10/02/22, and weekly after that. Activity Level: Activity as Tolerated Discharge Diet: Regular Follow Up Appointments: Karen Haas MD [Primary Care Provider] - Forms: [employer] Info Instructions Hospital Course Course Hospital Course: Lisa is a at 37.5 weeks. She was admitted yesterday for a persistent low heart rate. She was also diagnosed with mild polyhydramnios. After consulting with [facility], decision was made to forgo the IOL plan and monitor her overnight. heart tone strip review since admit yesterday. Baseline 110-125. Overall moderate variability with normal periods of minimal likely r/t sleep cycles of fetus. Accels present throughout. A few late decels noted shortly after admit, resolved and not noted again. Rare small variable, not deep. Abdirahman eagle ctx noted throughout, pt states she is not feeling anything. Plan in place for follow up BPP tomorrow. Will follow up weekly after that for the polyhydramnios. Plan for IOL at 39 weeks if polyhydramnios persists. Pt aware may need earlier if situation warrants. Reviewed monitoring for kick counts, and call/be seen immediately if a difference is noted. Pt and partner agree with plan. To be discharged home in stable condition. Labs Labs: Laboratory Tests 09/30/22 09/30/22 09/30/22 Range/Units 16:15 16:15 16:15 WBC 11.50 H (4.50-11.00) K/uL RBC 4.72 (4.00-5.20) m/uL Hgb 11.9 L (12.0-16.0) gm/dL Hct 37.2 (33.0-51.0) % MCV 79 L (80-100) fL MCH 25 L (26-34) pg MCHC 32 (32-36) gm/dL RDW Coeff of Hollie 15.5 (11.5-15.5) % Plt Count 179 (140-440) K/uL Neut % (Auto) 68.5 (42.0-72.0) % Lymph % (Auto) 22.7 (20-44) % [place] % (Auto) 7.7 (0.0-11.0) % Eos % (Auto) 0.3 (0.0-7.0) % Baso % (Auto) 0.3 (0.0-3.0) % Neut # (Auto) 7.90 H (1.7-7.0) K/uL Lymph # (Auto) 2.60 (0.90-2.90) K/uL [place] # (Auto) 0.90 (0.00-0.90) K/UL Eos # (Auto) 0.00 (0.00-0.50) K/uL Baso # (Auto) 0.00 (0.00-0.30) K/uL Hemoglobin A1c 5.17 (0-5.6) % Blood Type AB Positive Antibody Screen NEGATIVE OB Problem List Additional Plan (1) Abnormal heart rate affecting : Status: Acute (2) Polyhydramnios affecting in third trimester: Problem details: Mild, ANGELICA 30 on 10/01/22 Status: Acute DS: Summary Vital Signs Vital Signs: Vital Signs Temp Pulse Resp BP Pulse Ox 10/01/22 04:25 98.8 F 16 09/30/22 23:45 98.5 F 18 09/30/22 19:35 97.8 F 16 10/01/22 04:28 73 111/61 09/30/22 23:52 84 107/58 L 09/30/22 23:50 70 85/52 L 09/30/22 23:48 80 85/49 L 09/30/22 19:37 74 115/69 09/30/22 16:46 99 09/30/22 16:41 98 09/30/22 16:36 98 09/30/22 16:31 99 09/30/22 16:26 98 09/30/22 16:21 98 09/30/22 16:16 99 09/30/22 16:11 99 09/30/22 16:06 99 09/30/22 16:01 99 09/30/22 15:56 98 09/30/22 15:51 99 09/30/22 15:46 98 09/30/22 15:41 98.7 F 16 99 09/30/22 15:40 93 123/77 Discharge Examination General appearance: alert, in no apparent distress and normal affect
[2022-10-01 07:50] VITALS: BP 106/63; PULSE 75; RESP 18; TEMP 36.6; O2SAT 98
== END 2022-10-01 08:05 | disposition home or self-care (01) ==
LOC: OB OUT 15:35 → OB 15:37 → OB OUT 16:55 → OB 10-01 07:30
PROVIDERS: PCP Family Medicine; Visit Provider Advanced Practice Midwife
DX: O36.8330 Maternal care for abnormalities of the fetal heart rate or rhythm, third trimester, not applicable or unspecified (principal); O40.3XX0 Polyhydramnios, third trimester, not applicable or unspecified; Z3A.37 37 weeks gestation of pregnancy
CPT/HCPCS: 36415; 76819; 83036; 85025; 86850; 86900; 86901; 87635; A9270; G0378; G0379

== ENCOUNTER 2022-10-02 14:35 | Outpatient (CLI) | payer OTHER, SELFPAY ==
--- NOTE | 2022-10-02 15:00 | CRLHL7_ITS ---
For Patients: As a result of the Century Cures Act, medical imaging exams and procedure reports are released immediately into your electronic medical record. You may view this report before your referring provider. If you have questions, please contact your health care provider. INDICATION: History of a low heart rate. COMPARISON: September 30, 2022 TECHNIQUE: Real time jacobo scale imaging of the fetus was performed. Without non-stress testing. FINDINGS: Sonographic imaging demonstrates a single living intrauterine gestation. Posterior placenta. The fetus demonstrates a regular cardiac rate of 137 beats per minute. The fetus has a vertex orientation with spine to the maternal left side. The amniotic fluid volume appears normal and there is a single deepest pocket measurement of 6.2 cm. The fetus was active and demonstrated normal breathing movements. There was normal flexion and extension of the trunk and extremities. IMPRESSION: Normal biophysical profile score of 8 out of 8. Dictated by Scooter Georges MD @ 10/02/2022 3:56:51 PM (Electronically Signed)
== END 2022-10-02 14:36 | disposition home or self-care (01) ==
LOC: US 14:36
PROVIDERS: PCP Family Medicine; Visit Provider Advanced Practice Midwife
DX: O36.8390 Maternal care for abnormalities of the fetal heart rate or rhythm, unspecified trimester, not applicable or unspecified (principal)
CPT/HCPCS: 76819

== ENCOUNTER 2022-10-07 14:41 | Outpatient (CLI) | payer OTHER, SELFPAY ==
--- NOTE | 2022-10-07 15:00 | CRLHL7_ITS ---
For Patients: As a result of the Century Cures Act, medical imaging exams and procedure reports are released immediately into your electronic medical record. You may view this report before your referring provider. If you have questions, please contact your health care provider. INDICATION: Low FHR/mild polyhydramnios COMPARISON: 10/02/2022 TECHNIQUE: Real time jacobo scale imaging of the fetus was performed. Without non-stress testing. FINDINGS: Sonographic imaging demonstrates a single living intrauterine gestation. Fetus demonstrates a regular cardiac rate of 146 beats per minute. Fetus has a vertex position. The amniotic fluid volume is upper limits of normal and there is a single deepest pocket measurement of 11.6 cm. ANGELICA is 25.1 cm. The fetus was active and demonstrated normal breathing movements. There was normal flexion and extension of the trunk and extremities. IMPRESSION: Normal biophysical profile score of 8 out of 8. ANGELICA 25.1 cm, top-normal. Dictated by Bo Bonilla MD @ 10/07/2022 4:34:25 PM (Electronically Signed)
== END 2022-10-07 14:42 | disposition home or self-care (01) ==
LOC: US 14:42
PROVIDERS: PCP Family Medicine; Visit Provider Advanced Practice Midwife
DX: O40.3XX0 Polyhydramnios, third trimester, not applicable or unspecified (principal); O36.8390 Maternal care for abnormalities of the fetal heart rate or rhythm, unspecified trimester, not applicable or unspecified
CPT/HCPCS: 76819

== ENCOUNTER 2022-10-10 07:07 | Inpatient (IN) | payer OTHER, SELFPAY ==
[2022-10-10] VITALS (18 sets, daily range): BP systolic 95–122; BP diastolic 52–76; PULSE 68–103; RESP 16–18; TEMP 36.5–37.2; O2SAT 98; BMI 32.7
--- NOTE | 2022-10-10 08:15 | P.LDBA_ITS ---
Subjective History of Present Illness Date Seen: 10/10/22 Narrative: Patient is being admitted to Labor and Delivery for IOL for polyhydramnios. She is a 26 year old at weeks gestation. Her full history and physical was dictated by Clarissa Jarvis CNM on 10/02/22. Please see this for details. 1. H/o anxiety and ADD.? D/c'd zoloft, trazodone and Adderall at start of .? Doing well without meds 2. H/o genital HSV.??NEEDS:??prophylactic tx at 36 weeks?started at 34 weeks 3. H/o abnormal pap in 2016 per pt report.? Denies colp or leep. Normal pap 2021 4. UTI, early .? Treated with Augmentin.? Repeat culture showed E Coli from 06/18/22, Treated with Keflex.? Test of cure Negative 07/09/22. 5. Mild Poly BPP every week until delivery 09/30: ANGELICA 30, BPP 8/8, low FHR, plan repeat BPP 03/06 10/02: SDP 6.2, no ANGELICA completed 10/07: BPP8/8, SDP 9.6, ANGELICA 25 IOL recommended at 39 0/7: IOL at 39 weeks, consent signed Transfer of care at 21 weeks. First-trimester ultrasound performed on 03/13/2022:? Normal 1st trimester OB ultrasound.? Gestational age 8 weeks 3 days with a due date of 10/20/2022.? Ultrasound findings correlate with clinical menstrual age.? LMP 01/10/2022.??LILY 10/17/2022. anatomy scan on 06/04/2022 was normal:? Appropriate interval growth since previous study, no intrinsic abnormalities noted.? facial features were not optimally visualized. OB - Problem Based A/P Additional Plan (1) Polyhydramnios affecting in third trimester: Problem details: Mild, ANGELICA 30 on 10/01/22, ANGELICA 25 10/07 Status: Acute (2) Encounter for induction of labor: Status: Acute Plan ASSESSMENT:? at 39.0 weeks gestation? GBS negative? ?complicated by mild polyhydramnios with ANGELICA 25 IOL? ?? PLAN:? 1. Reviewed risks and benefits of IOL with pitocin vs cytotec. Pt prefers cytotec. Pitocin to follow if needed.? 2. Candidate for analgesia of choice. Planning unmedicated .?Not a candidate for a water . 3. Anticipate ? 4. Expectant management at this time.? 5. IV placement per unit policy 6. Monitoring plan per unit policy for Cytotec IOL or as condition changes.? ? Delivery/Labor/Induction Plan Plan: induction Induction method: per misoprostol protocol OB Result Labs Labs: Transfer labs: Blood type AB-positive Antibody screen negative Hemoglobin 12.7 Platelets 244 Rubella immune at 296 RPR negative Hepatitis-B antigen negative HIV negative Chlamydia negative Gonorrhea:? Negative Urine culture on 06/01/2022 E coli. Hepatitis C nonreactive TSH 1.13 Genetic screening performed:? 04/30/2022? negative for OSB, down syndrome, and trisomy 18. Labs Blood Type: AB (+) positive GBS Status: negative OB Exam Physical Exam Vital signs: Pulse BP Pulse Ox 98 122/71 98 10/10/22 07:37 10/10/22 07:37 10/10/22 07:36 Narrative: Vitals per EMR? Psychiatric:? Alert and oriented x3? HEENT:? Normocephalic, atraumatic? Neck:? Supple without adenopathy or thyromegaly? Lungs:? Clear to auscultation bilaterally? Heart:? Regular rate and rhythm, no murmur, rub or gallop? Abdomen:? Soft, nontender, and gravid? Extremities:? No edema or erythema? Detailed Labor and Delivery Exam Patient Gravid: Yes Dilation (cm): 1 Effacement (%): 80 Cervix position: anterior Consistency: firm Contraction Frequency: occasionaly, pt is not aware of contractions Tachysystole: No Contraction intensity: Mild Fetus (Single) Station: -3 (ballotable ) Amniotic Membrane Status: intact Heart Rate Baseline: 120 Monitor Accelerations: Present Monitor Decelerations: None [employer] Variability: Moderate (6-25)
[2022-10-10] MEDS: miSOPROStoL 25 MCG/0.25 TABLET VAGINAL (08:21)
[2022-10-10 08:27] LABS: SARS PCR* Negative SARS-CoV-2 (Negative)
[2022-10-10 09:32] LABS: Basophils Absolute Auto 0.01 K/uL (0.00-0.30); Basophils Percent Auto 0.1 % (0.0-3.0); Eosinophils Absolute Auto 0.03 K/uL (0.00-0.50); Eosinophils Percent Auto 0.4 % (0.0-7.0); Hematocrit 34.6 % (33.0-51.0); Hemoglobin* 11.1 gm/dL (12.0-16.0); Immature Granulocytes Abs Auto 0.02 K/uL (0.00-0.30); Immature Granulocytes Pct Auto 0.2 %; Lymphocytes Absolute Auto 1.71 K/uL (0.90-2.90); Lymphocytes Percent Auto 20.6 % (20-44); Mean Corpuscular HGB Conc 32 gm/dL (32-36); Mean Corpuscular Hemoglobin 25 pg (26-34); Mean Corpuscular Volume 78 fL (80-100); Monocytes Percent Auto 7.3 % (0.0-11.0); Neutrophils Absolute Auto 5.94 K/uL (1.7-7.0); Neutrophils Percent Auto 71.4 % (42.0-72.0); Platelet Count* 188 K/uL (140-440); RDW Coefficient of Variation % 15.7 % (11.5-15.5); Red Blood Count 4.46 m/uL (4.00-5.20); White Blood Count* 8.32 K/uL (4.50-11.00)
[2022-10-10 09:34] LABS: Slide Review Reflex No
--- NOTE | 2022-10-10 15:44 | PM.OBPNL ---
Subjective Date Seen: 10/10/22 Narrative: Lisa is resting in bed, supported by her significant other. She reports feeling some cramping but not with every contraction noted on the monitor. Has not made significant cervical change since last Cytotec does and at this time is haley every 1-3 minutes with some coupling noted. Per RN exam was 1.5, 80% and ballotable. Reviewed options for induction at this time including, IV Pitocin and insertion of a Cook balloon. Risks and alternatives were discussed and patient able to ask questions. Reviewed with them the unclear picture of how to proceed at this time, after discussion the patient chooses to proceed with IV Pitocin to try to continue moving forward with induction. Objective Vital Signs: Last Vital Signs Temp 98.9 F 10/10/22 07:37 Pulse 81 10/10/22 15:41 Resp 18 10/10/22 07:37 BP 117/76 10/10/22 15:41 Pulse Ox 98 10/10/22 07:37 Pelvic Exam Dilation (cm): 1 Effacement (%): 80 Station: Ballotable Comments: per RN Contractions Monitor mode: External Contraction Frequency: 1-3 Contraction pattern: Regular Contraction intensity: Mild Assessment Assessment: induction ongoing Station: -3 (ballotable ) Status: Category l Heart Rate Baseline: 120 Longterm Variability: Moderate (6-25) Monitor Accelerations: Present Monitor Decelerations: None Plan Plan: at 39.0 weeks here for induction of labor Mild polyhydramnios 1. Start IV Pitocin 2. Encourage upright positioning and position changes 3. Patient is a candidate for analgesia of choice, may have epidural at any time if requests 4. Reevaluate induction plan as needed.
[2022-10-10] MEDS: LACTATED RINGERS 1000 ML 1,000 ML 125 ML IV (16:11)
[2022-10-10] MEDS: OXYTOCIN 30 unit/500 ML in NS 30 UNIT/500 ML BAG IVPB (16:12)
--- NOTE | 2022-10-10 18:36 | PC.NURSE ---
Heart Monitor print out missing a segment from ~[id number] due to printer running out of paper. RN not aware at this time- in to room at 1156 to assess patient and replaced paper in monitor.
[2022-10-10] MEDS: hydrOXYzine pamoate 25 MG CAPSULE 100 MG PO (20:41)
[2022-10-10] MEDS: MORPHINE 10 MG/ML inj IM (20:41)
[2022-10-11] VITALS (68 sets, daily range): BP systolic 85–136; BP diastolic 52–76; PULSE 68–104; RESP 16; TEMP 36.4–37.2; O2SAT 98–100
[2022-10-11] MEDS: LACTATED RINGERS 1000 ML 1,000 ML 125 ML IV ×2 (00:20→16:05)
[2022-10-11] MEDS: ACETAMINOPHEN 500 MG TABLET 1000 MG PO ×2 (09:03→21:59)
--- NOTE | 2022-10-11 12:37 | PC.NURSE ---
FHR tracing not tracing on paper from ~1214- 1236 due to printer being out of paper. Tracing still on OBIX. RN noticed when went into room to check on patient. Printer paper replaced.
[2022-10-11] MEDS: ROPIVACAINE 0.2% 100 ml 100 ML 10 MG EPIDURAL (15:04)
[2022-10-11] MEDS: LIDOCAINE 2% (PF) 5 ML VIAL EPIDURAL (15:04)
--- NOTE | 2022-10-11 15:10 | P.ANBPRC_ITS ---
[facility] Medical History (Updated 10/10/22 @ 08:28 by Christina Linares CNM) No significant past medical history Surgical History (Updated 10/05/22 @ 08:20 by Tabitha Jarvis CNM) H/O wisdom tooth extraction History of tympanostomy S/P tonsillectomy and adenoidectomy Family History (Updated 10/05/22 @ 08:23 by Tabitha Jarvis CNM) Mother Asthma Bronchiolitis Father Heart disease Sister No problems noted. Brother Heart disease Brother Diabetes Brother Heart disease Aunt Thyroid disease Paternal Grandfather Brain cancer Family/Other Diabetes Social History Smoking Status: Former smoker Meds Home Medications and Allergies Home Medications Medication Instructions Recorded Confirmed Type cholecalciferol (vitamin D3) 25 25 mcg PO QDAY 06/10/22 10/10/22 History mcg (1,000 unit) capsule docosahexaenoic acid 200 mg 200 mg PO DAILY 06/10/22 10/10/22 History capsule ( DHA) Allergies Allergy/AdvReac Type Severity Reaction Status Date / Time ceprazil Allergy Mild Rash Uncoded 10/07/22 15:24 pet dander Allergy Mild Sneezing Uncoded 10/07/22 15:24 Results Vital Signs Vital Signs: Last Vital Signs Temp 98.6 F 10/11/22 09:41 Pulse 84 10/11/22 15:08 Resp 16 10/11/22 06:00 BP 114/57 L 10/11/22 15:08 Pulse Ox 100 10/11/22 15:09 Weight: 82.1 kg Height: 157.48 cm Anesthesia Procedures Epidural Insertion Patient Location: OB Start Time: 14:40 Stop Time: 15:10 Start Date: 10/11/22 Stop Date: 10/11/22 Reason for Block: primary anesthetic Patient Position: sitting Performed By: Wilmer Vital Preanesthetic Checklist: IV checked, risks and benefits discussed, surgical consent, monitors and equipment checked, pre-op evaluation, timeout performed and anesthesia consent Prep: chlorhexidine gluconate Monitoring: blood pressure monitoring, hall monitor, continuous pulse oximetry and heart rate Approach: midline Vertebral Space: lumbar (1-5) Epidural Technique: ROCHELLE saline Needle Type: Tuohy needle Injection Technique: continuous catheter (catheter) Needle gauge: 17 Needle Length (cm): 10 cm Needle Insertion Depth (cm): 5 Catheter Gauge: 19 Catheter Type: multi-orifice Catheter at skin depth (cm): 10 Test Dose Result: negative and lidocaine 1.5% with epinephrine 1 to 200,000
--- NOTE | 2022-10-11 15:55 | PM.OBPNL ---
Subjective Date Seen: 10/11/22 Narrative: Lisa is comfortable now with an Epidural in place, she is supported by Chilo at her bedside. As previously discussed with patient, the plan for AROM was reviewed. Patient and family agreeable. Cervical exam 3cm, 90%, -1 not ballotable. Objective Vital Signs: Last Vital Signs Temp 97.6 F 10/11/22 15:24 Pulse 82 10/11/22 15:38 Resp 16 10/11/22 06:00 BP 125/74 10/11/22 15:38 Pulse Ox 99 10/11/22 15:44 Pelvic Exam Dilation (cm): 3 Effacement (%): 90 Station: -1 Contractions Monitor mode: External Contraction Frequency: 3-5 Contraction pattern: Regular Contraction intensity: Moderate Pitocin Rate (mU/min): 7 Assessment Assessment: early labor Station: -1 (ballotable ) Amniotic Membrane Status: AROM (Clear) Status: Category l Heart Rate Baseline: 125 [facility] Variability: Moderate (6-25) Monitor Accelerations: Present Monitor Decelerations: None Plan Plan: AROM for clear fluid. Positioned in high fowlers for approximately the next 30 minutes and then encouraged to change positions frequently for the duration of her labor. Anticipate JOHNNIE Zapata with supervision by Tabitha Jarvis CNM
--- NOTE | 2022-10-11 18:36 | PM.ANBPRC ---
PFSH PFSH Medical History (Updated 10/10/22 @ 08:28 by Christina Linares CNM) No significant past medical history Surgical History (Updated 10/05/22 @ 08:20 by Tabitha Jarvis CNM) H/O wisdom tooth extraction History of tympanostomy S/P tonsillectomy and adenoidectomy Family History (Updated 10/05/22 @ 08:23 by Tabitha Jarvis CNM) Mother Asthma Bronchiolitis Father Heart disease Sister No problems noted. Brother Heart disease Brother Diabetes Brother Heart disease Aunt Thyroid disease Paternal Grandfather Brain cancer Family/Other Diabetes Social History Smoking Status: Former smoker Meds Home Medications and Allergies Home Medications Medication Instructions Recorded Confirmed Type cholecalciferol (vitamin D3) 25 25 mcg PO QDAY 06/10/22 10/10/22 History mcg (1,000 unit) capsule docosahexaenoic acid 200 mg 200 mg PO DAILY 06/10/22 10/10/22 History capsule ( DHA) Allergies Allergy/AdvReac Type Severity Reaction Status Date / Time ceprazil Allergy Mild Rash Uncoded 10/07/22 15:24 pet dander Allergy Mild Sneezing Uncoded 10/07/22 15:24 Results Vital Signs Vital Signs: Last Vital Signs Temp 97.5 F L 10/11/22 17:28 Pulse 76 10/11/22 18:35 Resp 16 10/11/22 06:00 BP 124/59 L 10/11/22 18:35 Pulse Ox 99 10/11/22 15:44 Weight: 82.1 kg Height: 157.48 cm Anesthesia Procedures Epidural Insertion Events: other (1834 catheter pulled back to 9.5cm at skin d/t hotspot on the left pt re bolused with 5ml 2% lidocaine.)
[2022-10-11] MEDS: ROPIVACAINE 0.2% 100 ml 100 ML 12 MG EPIDURAL (21:41)
[2022-10-12] VITALS (124 sets, daily range): BP systolic 96–182; BP diastolic 51–100; PULSE 43–133; RESP 14–16; TEMP 36.4–38.3; O2SAT 95–100
[2022-10-12] MEDS: LACTATED RINGERS 1000 ML 1,000 ML 125 ML IV ×4 (00:26→20:44)
[2022-10-12] MEDS: ROPIVACAINE 0.2% 100 ml 100 ML 12 MG EPIDURAL ×3 (02:37→16:40)
--- NOTE | 2022-10-12 04:03 | PM.OBPNL ---
Subjective Time Seen by Provider: 00:57 Date Seen: 10/11/22 Narrative: Lisa is a 26 yo at 39 2/7 weeks gestation here for IOL for polyhydramnios. She is coping well with labor pain/contractions with support of her epidural. She is currently being supported by Chilo. Her epidural had not been working well, anesthesia had adjusted it and it seems to be better after bolus. Objective Exam: Objective: Constitutional: Alert and oriented x3, mild distress, coping well Vital signs stable, see nurse documentation Abdomen: gravid, contractions palpate moderate/strong with contractions and soft between Vital Signs: Last Vital Signs Temp 98.4 F 10/12/22 02:40 Pulse 78 10/12/22 03:09 Resp 16 10/12/22 02:40 BP 110/69 10/12/22 03:09 Pulse Ox 99 10/11/22 15:44 Pelvic Exam Dilation (cm): 7 Effacement (%): 100 Station: 0 Contractions Monitor mode: External Contraction pattern: Regular Contraction intensity: Moderate Pitocin Rate (mU/min): 16 Assessment Assessment: active labor Station: 0 (ballotable ) Amniotic Membrane Status: AROM (Clear) Status: Category l Heart Rate Baseline: 125 Nursing Home Variability: Moderate (6-25) Monitor Accelerations: Present Monitor Decelerations: None Plan Plan: ASSESSMENT:? 26 at 39 2/7 weeks gestation? complicated by:?Polyhydramnios, low FHR, hx of anxiety, hx of HSV on suppression Labor type: Induced, Active labor? Category 1 FHR pattern.?? Labor complicated by: Polyhydramnios post AROM clear fluid? GBS negative? ? PLAN:? 1. Routine intrapartum cares as ordered. Continue with pitocin augmentation, recommended staying at current rate. 2. Monitoring per policy, continuous 3. Continue with epidural for pain management. 4. Patient encouraged to reposition to promote physiologic labor and .? 5. Anticipate ?
[2022-10-12] MEDS: LIDOCAINE 2% (PF) 5 ML VIAL EPIDURAL (05:00)
[2022-10-12] MEDS: fentaNYL 100 MCG/2 ML inj EPIDURAL (05:33)
--- NOTE | 2022-10-12 05:43 | PM.ANBPRC ---
[facility] (Updated 10/10/22 @ 08:28 by Christina Linares CNM) No significant past medical history Surgical History (Updated 10/05/22 @ 08:20 by Tabitha Jarvis CNM) H/O wisdom tooth extraction History of tympanostomy S/P tonsillectomy and adenoidectomy Family History (Updated 10/05/22 @ 08:23 by Tabitha Jarvis CNM) Mother Asthma Bronchiolitis Father Heart disease Sister No problems noted. Brother Heart disease Brother Diabetes Brother Heart disease Aunt Thyroid disease Paternal Grandfather Brain cancer Family/Other Diabetes Social History Smoking Status: Former smoker Meds Home Medications and Allergies Home Medications Medication Instructions Recorded Confirmed Type cholecalciferol (vitamin D3) 25 25 mcg PO QDAY 06/10/22 10/10/22 History mcg (1,000 unit) capsule docosahexaenoic acid 200 mg 200 mg PO DAILY 06/10/22 10/10/22 History capsule ( DHA) Allergies Allergy/AdvReac Type Severity Reaction Status Date / Time ceprazil Allergy Mild Rash Uncoded 10/07/22 15:24 pet dander Allergy Mild Sneezing Uncoded 10/07/22 15:24 Results Vital Signs Vital Signs: Last Vital Signs Temp 98.4 F 10/12/22 02:40 Pulse 75 10/12/22 05:38 Resp 16 10/12/22 02:40 BP 131/75 10/12/22 05:38 Pulse Ox 100 10/12/22 05:41 Weight: 82.1 kg Height: 157.48 cm Anesthesia Procedures Epidural Insertion Patient Location: OB Start Time: 05:20 Stop Time: 05:45 Start Date: 10/12/22 Stop Date: 10/12/22 Reason for Block: procedure for pain Patient Position: sitting Performed By: Wilmer Vital Preanesthetic Checklist: IV checked, site marked, risks and benefits discussed, monitors and equipment checked, pre-op evaluation, timeout performed and anesthesia consent Prep: chlorhexidine gluconate Monitoring: blood pressure monitoring, continuous pulse oximetry and heart rate Approach: midline Vertebral Space: lumbar (1-5) Epidural Technique: ROCHELLE saline Needle Type: Tuohy needle Injection Technique: continuous catheter Needle gauge: 17 Needle Length (cm): 10 cm Needle Insertion Depth (cm): 5 Catheter Gauge: 19 Catheter Type: multi-orifice Catheter at skin depth (cm): 10 Test Dose Result: negative Events: other (Previous epidural not working, pulled catheter tip intact. Pt agrees to have 2nd Epidural.)
--- NOTE | 2022-10-12 07:15 | PM.OBPNL ---
Subjective Time Seen by Provider: 06:30 Date Seen: 10/12/22 Narrative: Lisa is a at 39 2/7 weeks gestation here for IOL for polyhydramnios. She is currently on pitocin and coping okay with labor pain/contractions. Her epidural was not working well, anesthesia was notified to replace. She is now feeling better. She is currently being supported by her , Chilo. Objective Exam: Objective: Constitutional: Alert and oriented x3, no distress, coping well Vital signs stable, see nurse documentation Abdomen: gravid, contractions palpate strong with contractions and soft between Vital Signs: Last Vital Signs Temp 98.4 F 10/12/22 05:43 Pulse 80 10/12/22 07:10 Resp 16 10/12/22 05:43 BP 117/73 10/12/22 07:10 Pulse Ox 98 10/12/22 06:31 Pelvic Exam Dilation (cm): 9.5 Effacement (%): 100 Station: -1 Comments: Left side cervical lip. Unchanged since 330 am, now comfortable and able to attempt position changes. Contractions Monitor mode: External Contraction pattern: Regular Contraction intensity: Strong/Firm Pitocin Rate (mU/min): 16 Assessment Assessment: active labor Station: -1 (ROP) Amniotic Membrane Status: AROM (Clear) Status: Category l Heart Rate Baseline: 125 [employer] Variability: Moderate (6-25) Monitor Accelerations: Present Monitor Decelerations: None Plan Plan: 26 at 39 2/7 weeks gestation? complicated by:?Polyhydramnios, low FHR, hx of anxiety, hx of HSV on suppression Labor type: Induced, Active labor? Category 1 FHR pattern.?? Labor complicated by: Polyhydramnios post AROM clear fluid? GBS negative? ? PLAN:? 1. Routine intrapartum cares as ordered. Continue with Pitocin augmentation, recommended staying at current rate. 2. Monitoring per policy, continuous 3. Continue with epidural for pain management. 4. Patient encouraged to reposition to promote physiologic labor and .?Attempt positions to encourage rotation. 5. Anticipate . JOHNNIE Zapata with supervision of Tabitha Jarvis CNM
[2022-10-12] MEDS: CALCIUM CARBONATE 500 MG CHEW PO (10:09)
--- NOTE | 2022-10-12 14:25 | PM.OBPNL ---
Subjective Date Seen: 10/12/22 Narrative: Lisa is comfortable with an epidural in place, Chilo is at her bedside for support. Vaginal exam complete +1. She is now pushing with good effort. FHR 145 without accelerations since pushing started, variable, early, and late decelerations noted. Position changes approximately every 20-30 minutes or as needed. Objective Vital Signs: Last Vital Signs Temp 99 F 10/12/22 13:35 Pulse 86 10/12/22 14:08 Resp 16 10/12/22 08:30 BP 110/70 10/12/22 14:08 Pulse Ox 98 10/12/22 06:31 Pelvic Exam Dilation (cm): 10 Effacement (%): 100 Station: +1 Contractions Monitor mode: External Contraction Frequency: 3-4 Contraction pattern: Regular Contraction intensity: Strong/Firm Pitocin Rate (mU/min): 16 Assessment Assessment: induction ongoing Station: -1 (ROP) Amniotic Membrane Status: AROM (Clear) Status: Category l Heart Rate Baseline: 145 Monitor Accelerations: Absent Monitor Decelerations: Early (and Late intermittant not repetative ) Plan Plan: PLAN:? 1. Routine intrapartum cares as ordered. Continue with Pitocin augmentation, recommended increasing rate cautiously as needed. 2. Monitoring per policy, continuous 3. Continue with epidural for pain management. 4. Patient encouraged to reposition to promote physiologic labor and .?Attempt positions to encourage rotation. 5. Anticipate . 6. Pushing effectively. Monitor progress and change pushing methods as needed. JOHNNIE Zapata with supervision of Christina Linares CNM
[2022-10-12] MEDS: AMPICILLIN 2 GM in 0.9 % SODIUM CHLORIDE Mini-bag 100 ML IVPB (18:05)
[2022-10-12] MEDS: GENTAMICIN 320 MG in 0.9 % SODIUM CHLORIDE 100 ml 100 ML 108 MG IVPB (19:21)
--- NOTE | 2022-10-12 19:41 | PM.OBCN1 ---
OB - CN: HPI Date of Consult Time Seen by Provider: 19:41 Date Seen: 10/12/22 Patient: [facility] Patient Consult date: 10/12/22 Requesting Physician: Christina Linares CNM Primary Care Provider: Karen Haas MD Consult Narrative Narrative: Lisa is a 26 year old G 26yo P 2 at 0010 weeks gestation that was admitted to the [facility] on 10/10/22 for induction of labor due to mild polyhydramnios, history of heart rate in the 100s and suspected macrosomia with an EFW of > 97%. She has pushed for greater than 5 hours without delivery or significant descent of the vertex into the canal. She also has developed chorioamnionitis and had it maximum temperature 100.9? F at approximately 5:45 p.m.. Ampicillin and gentamicin were ordered. The patient is currently extremely uncomfortable with contractions and complains of hip and low back pain. Pitocin was stopped at 7:20 p.m. it was at 18 milliunits/minute. History of Present Dating criteria: based on 1st trimester US only care: good care Ultrasounds: normal 1st trimester US, normal mid trimester US and abnormal US findings (Mild polyhydramnios with an ANGELICA between 25-30. EFW>97%.) complications: infection Infection details: other (chorioamnionitis) complications comment: Chorioamnionitis in the 2nd stage ampicillin and gentamicin ordered. History History 1 Elective abortions Para 0 Spontaneous abortions Hx # Term Pregnancies Ectopic pregnancies Hx # Pregnancies Multiple births Number of Living Children 0 Labs Blood type: AB (+) positive Rubella: immune RPR/VDLR: nonreactive GBS status: negative HBsAG: negative OB Labs: Lab Assessment Start: 10/10/22 07:14 Freq: ONCE Status: Complete Protocol: PC.OBGBS Activity Type Activity Date Activity User E-sign Co-sign Detail Recorded Client Recorded Date Recorded By Document 10/10/22 08:55 AB [id number] 10/10/22 08:56 AB 10/10/22 08:55 Lab Assessment GBS Negative Previous Fluker with Invasive GBS No Does Patient Meet Criteria No Is Patient Allergic to Penicillin No Does Patient Have History of Severe No Reaction Are Susceptibility Studies Available No Resistant to Either Clindamycin or No Erythromycin No Treatment Needed OK Maternal Blood Type AB Maternal RH Factor Positive Evaluate Maternal Rubella Immune Status Immune Hepatitis B Surface Antigen Negative Maternal HIV Status Negative Maternal Syphillis (RPR) Status Negative Are Labs Available Yes PFSH [facility] Medical History Arrest of descent, delivered, current hospitalization Chorioamnionitis macrosomia during in third trimester No significant past medical history Prolonged second stage (of labor) Surgical History H/O wisdom tooth extraction History of tympanostomy S/P tonsillectomy and adenoidectomy Status post primary low transverse section (10/12/22) Family History Mother Asthma Bronchiolitis Father Heart disease Sister No problems noted. Brother Heart disease Brother Diabetes Brother Heart disease Aunt Thyroid disease Paternal Grandfather Brain cancer Family/Other Diabetes Social History Smoking Status: Former smoker Meds Home Medications and Allergies Home Medications Medication Instructions Recorded Confirmed Type cholecalciferol (vitamin D3) 25 25 mcg PO QDAY 06/10/22 10/10/22 History mcg (1,000 unit) capsule docosahexaenoic acid 200 mg 200 mg PO DAILY 06/10/22 10/10/22 History capsule ( DHA) Allergies Allergy/AdvReac Type Severity Reaction Status Date / Time ceprazil Allergy Mild Rash Uncoded 10/07/22 15:24 pet dander Allergy Mild Sneezing Uncoded 10/07/22 15:24 OB - H&P: Exam Physical Exam: Vital signs: Temp Pulse Resp BP Pulse Ox 98.6 F 92 16 130/73 98 10/12/22 19:09 10/12/22 19:23 10/12/22 19:09 10/12/22 19:23 10/12/22 06:31 Narrative: GENERAL APPEARANCE: Pleasant, [race], well-groomed woman in no acute distress. VITAL SIGNS: as noted in nursing notes HEAD: Normocephalic, atraumatic. THYROID: no masses, nodularity, tenderness or enlargement. LUNGS: Clear to auscultation bilaterally without wheezes, rales or rhonchi. HEART: Regular rate and rhythm with normal S1 and S2. No gallop, rub or murmur. ABDOMEN: Gravid. Soft, nontender, nondistended, with normal bowels sounds throughout. EFM: Baseline: 140s, moderate variability, no accelerations, combination of late and early decelerations with contractions. Category 2. PRESENTATION: Vertex by sterile vaginal exam SVE: Complete, vertex at 0 station, caput at +2. Possible L OT difficult to evaluate position due to caput. EXTREMITIES: No cyanosis, clubbing or varicosities. Bilateral lower extremity edema to the mid michael 2+. NEUROLOGIC: Normal gait and balance. Normal deep tendon reflexes at bilateral patella 2+/2, equal without clonus. PSYCHIATRIC: alert and oriented x3. Normal speech pattern, eye contact and affect. SKIN: Warm, dry, and well perfused. Good turgor. No lesions, nodules or rashes. OB - CN: A/P Assessment and Plan (1) Polyhydramnios affecting in third trimester: Problem details: Mild, ANGELICA 30 on 10/01/22, ANGELICA 25 10/07 Status: Acute (2) Encounter for induction of labor: Status: Acute (3) macrosomia during in third trimester: Status: Acute (4) Chorioamnionitis: Status: Acute (5) Arrest of descent, delivered, current hospitalization: Status: Acute Assessment and Plan: 1. Recommended primary low-transverse . 2. Consent form reviewed and signed. 3. Continue Zosyn 3.75 mg IV every 6 hours until the patient is 24 hours without a fever. 4. Anesthesia is planning spinal anesthetic as the epidural does not appear to be working well. (6) Status post primary low transverse section: Problem details: Arrest of descent, Boy, [place]. Status: Acute (7) Prolonged second stage (of labor): Status: Acute
--- NOTE | 2022-10-12 19:54 | PM.PROC ---
Procedure Note Time Seen by Provider: 19:54 Date Seen: 10/12/22 Date of procedure: 10/12/22 Will [facility] bill your pro fee for this procedure?: Yes Procedure: Preoperative diagnosis: 26-year-old 2 para 0010 at 39 and 2/7 weeks Arrest of descent Chorioamnionitis Suspected macrosomia Postoperative diagnosis: Same Procedure: Primary low-transverse section Anesthesia: Spinal Surgeon: Aurea Campos MD Employment Recruiter: Not applicable Quantitative blood loss: 910 mL IV Fluid: 2000 mL UOP: 400 mL Specimen: Placenta to pathology Drain(s): Diehl to gravity Findings: A live male was delivered from the L OT position at 844 PM. Apgars were 7 at 1 min and 9 at 5 min, respectively. weight: 8 lb 6 oz. Nuchal cord(s): No. The placenta was delivered spontaneously and complete at 846 PM. Amniotic fluid: Clear.. Normal uterus, fallopian tubes and ovaries were noted. Other findings: No abnormalities Procedure: Lisa was taken to the OR where spinal anesthetic was found be adequate. A Diehl catheter was placed. The patient was then placed in the dorsal supine position with a leftward tilt. She was then prepped and draped in a normal sterile manner. A Pfannenstiel skin incision was made and carried through sharply to the underlying layer of fascia. Fascia was incised in the midline and this incision carried laterally with White scissors. The superior aspect of fascial incision was grasped with Jessica clamps, tented up, and the rectus muscles dissected off to approximately 5cm above the fascial incision. The rectus muscles were in the midline. The peritoneum was entered bluntly. This opening was extended bluntly. An Jason-O self-retaining retractor was placed. A bladder flap was/was not created. Uterus was incised in a low transverse manner in the midline. This incision carried laterally with blunt pressure on the inferior and superior aspects of the uterine incision. The amniotic sac was ruptured. The infant's head and body was delivered atraumatically. The infant was shown to the patient and her support person and then handed to waiting pediatric and nursing staff. The placenta was delivered spontaneously. The uterus was cleared of clots and debris. The uterine incision was re-approximated with the uterus in vivo. The 1st layer using 0-Vicryl in a running, locked manner. The 2nd layer using 0-Monocryl in a running, vertical, imbricating layer. Additional sutures needed for hemostasis: No. Excellent hemostasis was verified. The Jason retractor was removed. The peritoneum was reapproximated using 3-0 Vicryl in a running manner. The rectus muscles were not reapproximated. The rectus muscles were then closely inspected to verify hemostasis. Hemostasis was obtained with bipolar cautery. The fascia was then re-approximated using 0-Maxon loop in a running manner. The subcutaneous tissue was then irrigated with saline and hemostasis obtained with bipolar cautery. The subcutaneous tissue was re-approximated using 3-0 plain gut in a running manner. The skin was reapproximated using 4-0 Monocryl in a running subcuticular manner. Exofin skin adhesive and a Methaplex dressing were applied. The patient tolerated this procedure well. Sponge, lap and instrument counts were correct x2 active to the procedure. Patient was taken to the recovery area in stable condition. The patient received 2 g of IV Ancef and 500 mg azithromycin IV prior to skin incision. After delivery: Received 1 dose Methergine 0.2 mg IM, 1 g IV TXA and 40 units Pitocin in 1 L IV fluid. Surgeon: Aurea Campos MD
[2022-10-12] MEDS: CEFAZOLIN 2 GM INJ IVP (20:25)
[2022-10-12] MEDS: AZITHROMYCIN 500 MG in 0.9 % SODIUM CHLORIDE 250 ml 250 ML 300 MG IVPB (20:30)
[2022-10-12] MEDS: TRANEXAMIC ACID 100 MG/ML INJ 1000 MG IV (20:35)
[2022-10-12] MEDS: KETOROLAC 30 MG/ML inj IVP (21:18)
--- NOTE | 2022-10-12 21:45 | W.ANESCHARGE ---
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
--- NOTE | 2022-10-12 21:46 | P.NB_ITS ---
Nerve Block Nerve Block Time Seen by Provider: 21:30 Date Seen: 10/12/22 Type of block requested by surgeon for post-operative analgesia: TAP Side: bilateral Time out performed: Yes Verification of patient name: Yes Verification of date of : Yes Site marking: site marked Name of person performing procedure: Jhonatan Gao Continuous monitoring Was continuous monitoring of O2 sat, B/P, laboratory monitor, recorded every 15 minutes?: Yes Procedure Checklist: sterile prep, needles and gloves Ultrasound guided. Images saved: Yes Medications given in 5ml increments after negative aspiration: Marcaine %: 0.25 mL: 30 Needle gauge: 20 and Exparel mL: 10 Needle gauge: 20 Patient tolerated procedure well: Yes Additional comments: Injected in 5ml increments after negative aspiration Block Charges Block Charge (with Pro Fee): TAP Bilateral Use of Ultrasound Machine for Block: Yes- US Guidance/pain block
--- NOTE | 2022-10-12 22:04 | PM.OBPNL ---
Subjective Date Seen: 10/12/22 Narrative: Lisa was found to be complete and started pushing around 1330. She pushed effectively with small, gradual progress throughout most of pushing. She maintained a good attitude and did have good effort and drive. She pushed in many positions. Baby tolerated pushing mostly well but did have occasional lates and variables that resolved with position changes. After around 5 hours of effective pushing effort and descent of baby slowed dramatically. There was significant caput noted at that time as well. She was exhausted and unable to push further. Dr. Campos came to evaluate and the patient was offered a section. She was very agreeable. See Dr. Patel note for delivery information. Objective Vital Signs: Last Vital Signs Temp 97.9 F 10/12/22 21:35 Pulse 79 10/12/22 21:58 Resp 16 10/12/22 21:58 BP 130/80 10/12/22 21:58 Pulse Ox 95 10/12/22 21:58 O2 Del Method 10/12/22 21:58 Pelvic Exam Dilation (cm): 10 Effacement (%): 100 Station: +1 Contractions Monitor mode: External Contraction pattern: Regular Contraction intensity: Strong/Firm Pitocin Rate (mU/min): 16 Assessment Station: -1 (ROP) Amniotic Membrane Status: AROM Status: Category l Heart Rate Baseline: 145 Monitor Accelerations: Absent Monitor Decelerations: Early (and Late intermittant not repetative )
[2022-10-13] VITALS (7 sets, daily range): BP systolic 92–124; BP diastolic 55–79; PULSE 72–100; RESP 16; TEMP 36.3–37.1; O2SAT 96–99
[2022-10-13] MEDS: PIPERACILLIN/TAZOBACTAM 3.375 GM in 0.9 % SODIUM CHLORIDE Mini-bag 100 ML IVPB ×4 (02:19→20:29)
[2022-10-13] MEDS: KETOROLAC 30 MG/ML inj IVP ×4 (02:20→20:28)
[2022-10-13] MEDS: LACTATED RINGERS 1000 ML 1,000 ML 125 ML IV (06:05)
[2022-10-13 07:07] LABS: Basophils Percent Auto 0.1 % (0.0-3.0); Eosinophils Percent Auto 0.2 % (0.0-7.0); Hematocrit 30.8 % (33.0-51.0); Immature Granulocytes Pct Auto 0.2 %; Lymphocytes Percent Auto 9.6 % (20-44); Mean Corpuscular HGB Conc 33 gm/dL (32-36); Mean Corpuscular Hemoglobin 25 pg (26-34); Mean Corpuscular Volume 76 fL (80-100); Monocytes Percent Auto 7.5 % (0.0-11.0); Neutrophils Percent Auto 82.4 % (42.0-72.0); Platelet Count* 164 K/uL (140-440); Red Blood Count 4.03 m/uL (4.00-5.20); White Blood Count* 14.76 K/uL (4.50-11.00)
[2022-10-13 07:28] LABS: Slide Review Reflex No
--- NOTE | 2022-10-13 09:15 | PM.OBPNCS1 ---
OB - PN: A/P Assessment and Plan (1) care and examination immediately after delivery: Status: Acute (2) Status post primary low transverse section: Problem details: Arrest of descent, Everett Forbes. 8#6oz, LOT. Apgars 7/9 Status: Acute (3) Lactating mother: Status: Acute Plan day: 1 Plan: routine postop care Comments: Continue to monitor BP and temperature. Encourage activity and catheter removal. May see if desired. Anticipate discharge 10/15. OB - PN: Subj Subjective Date Seen: 10/13/22 Patient comments: no complaints, pain well controlled and tolerating diet infant status: and doing well Narrative: Lisa is a 26 y.o. who was admitted to L & D for induction of labor for polyhydramnios and low heart rate during . ?She had an for failure to descend following 5 hours of pushing with chorio diagnosed during pushing due to a elevated temp of 100.9. The patient feels well. ?The pain is well controlled with current medications. ?She has no new complaints. ?She is breast feeding and reports things are going well.? the patient has done well.? Vitals have been stable.? She has remained afebrile.? Has a good appetite, is tolerating a general diet. ?She is voiding without difficulty.? She is passing gas and has not had a bowel movement.? She has not yet been out of bed to ambulate but this is the plan this morning.? Has Small amount of rubra lochia. Of note, there are elevated blood pressures documented but on repeat were normal, pre-e labs were not drawn because this does not meet criteria for hypertension. OB - PN: Obj Exam Physical Exam: Vital signs: Temp Pulse Resp BP Pulse Ox O2 Del Method 98.3 F 84 16 101/66 98 10/13/22 04:37 10/13/22 04:37 10/13/22 04:37 10/13/22 04:37 10/13/22 04:37 10/13/22 04:37 Narrative: GENERAL APPEARANCE:? normal affect, alert, no distress? MOOD:? appropriate? CHEST:? clear to auscultation? HEART:? regular rate and rhythm? ABDOMEN:? soft, non-tender the uterine fundus is at Umbilicus, Midline and is appropriate for the stage of recovery.? INCISION: dressing in place, clean, dry, intact. EXTREMITIES:? normal and +1 edema? Urinary Catheter Management: Urethral: Cath placed during this visit: yes Urethral indwelling: Yes Reason for continuing: surgical procedure Insertion date: 10/12/22 Insertion time: 22:30 OB - PN: Obj Data Labs Labs: Laboratory Results - last 24 hr 10/13/22 06:45 WBC 14.76 H RBC 4.03 Hgb 10.0 L Hct 30.8 L MCV 76 L MCH 25 L MCHC 33 RDW Coeff of Hollie 16.0 H Plt Count 164 Neut % (Auto) 82.4 H Lymph % (Auto) 9.6 L [place] % (Auto) 7.5 Eos % (Auto) 0.2 Baso % (Auto) 0.1 Neut # (Auto) 12.20 H Lymph # (Auto) 1.40 [place] # (Auto) 1.10 H Eos # (Auto) 0.00 Baso # (Auto) 0.00
[2022-10-13] MEDS: ACETAMINOPHEN 500 MG TABLET 1000 MG PO ×2 (11:00→18:31)
[2022-10-14] MEDS: ACETAMINOPHEN 500 MG TABLET 1000 MG PO ×4 (00:39→20:04)
[2022-10-14] MEDS: LOPERAMIDE HCL 2 MG CAPSULE 4 MG PO (00:40)
[2022-10-14] MEDS: IBUPROFEN 600 MG TABLET PO ×4 (02:19→23:06)
[2022-10-14 04:09] VITALS: BP 107/69; PULSE 84; RESP 16; TEMP 36.6; O2SAT 97
--- NOTE | 2022-10-14 07:40 | PM.OBPNCS1 ---
OB - PN: A/P Assessment and Plan (1) care and examination immediately after delivery: Status: Acute (2) Status post primary low transverse section: Problem details: Arrest of descent, Everett Forbes. 8#6oz, LOT. Apgars 7/9 Status: Acute (3) Lactating mother: Status: Acute Plan Plan: routine postop care Comments: Assessment/Plan G 1 P 1 status post uncomplicated primary . 1. ?Continue route PP cares 2. ?Pumping and bottlefeeding.. ?May see if desired 3. ?Anticipate discharge home tomorrow 4. ?Acute mild anemia. ? 5. Chorioamnionitis diagnosed while pushing. Afebrile. Will continue to monitor. OB - PN: Subj Subjective Time Seen by Provider: 07:40 Date Seen: 10/14/22 Interval history: Lsia is a 26 y.o. who was admitted to L & D for IOL for polyhydramnios. ?She had an uncomplicated , but during pushing was diagnosed with chorioamnionitis. Patient comments: pain well controlled, tolerating diet and flatus present infant status: bottle (per preference states pt) feeding status: expressed and bottle feeding Narrative: The patient feels well. ?The pain is well controlled with current medications. ?She has no new complaints. ?She is bottle feeding and pumpingand reports things are going well.? the patient has done well.? Vitals have been stable.? She has remained afebrile.? Has a good appetite, is tolerating a general diet. ?She is voiding without difficulty.? She is passing gas and has not had a bowel movement.? She is ambulating and denies any dizziness.? Has Small amount of rubra lochia. She would prefer to stay another day to continue to get help and education in caring for the baby. OB - PN: Obj Exam Physical Exam: Vital signs: Temp Pulse Resp BP Pulse Ox O2 Del Method 97.8 F 84 16 107/69 97 10/14/22 04:09 10/14/22 04:09 10/14/22 04:09 10/14/22 04:09 10/14/22 04:09 10/14/22 04:09 Narrative: VSS. Afebrile GENERAL APPEARANCE: ?normal affect, alert, no distress MOOD: ?appropriate HEENT: normocephalic, neck supple, full ROM CHEST: ?Symmetrical chest wall movement. ?Normal respiratory effort. ?Clear to auscultation HEART: ?regular rate and rhythm ABDOMEN: ?soft, non-tender. Uterine fundus is firm, at Umbilicus, Midline and is appropriate for the stage of recovery. ?Bowel sounds present. EXTREMITIES: ?normal and +2 edema SKIN: warm, dry. Incision clean/dry/well approximated. No signs of infection noted. Urinary Catheter Management: Urethral: Cath placed during this visit: yes, but has since been removed by the nurse Urethral indwelling: Yes Reason for continuing: surgical procedure Insertion date: 10/12/22 Insertion time: 22:30 Removal date: 10/13/22 Removal time: 08:40
[2022-10-14] MEDS: OXYCODONE 5 MG TABLET PO (08:02)
[2022-10-14 08:05] VITALS: BP 111/73; PULSE 80; RESP 16; TEMP 36.3; O2SAT 96
[2022-10-14 16:55] VITALS: BP 114/74; PULSE 81; RESP 18; TEMP 36.6; O2SAT 96
[2022-10-14 23:15] VITALS: BP 106/71; PULSE 77; RESP 18; TEMP 36.3; O2SAT 97
[2022-10-15] MEDS: OXYCODONE 5 MG TABLET PO (01:10)
[2022-10-15] MEDS: IBUPROFEN 600 MG TABLET PO (06:33)
--- NOTE | 2022-10-15 07:42 | P.DS_ITS ---
DS: Providers Provider Date Seen: 10/15/22 Date of admission: 10/10/22 07:07 Primary care physician: Karen Haas MD Admitting Clinician: Christina Linares CNM Attending Physician on discharge: Tabitha Jarvis CNM Date of Discharge: 10/15/22 DS: Diagnosis Discharge Diagnosis (1) Lactating mother: Status: Acute (2) Status post primary low transverse section: Status: Acute Problem details: Arrest of descent, Boy, Everett. 8#6oz, LOT. Apgars 7/9 (3) care and examination immediately after delivery: Status: Acute Exam Const: Vital Signs, click to edit/add: Vital Signs - 24 hr 10/14/22 08:05 10/14/22 16:55 10/14/22 23:15 Temperature 97.4 F L 97.8 F 97.4 F L Pulse Rate [Pulse Oximeter] 80 81 77 Respiratory Rate 16 18 18 Blood Pressure [Ri ght Arm] 111/73 114/74 106/71 Pulse Oximetry 96 96 97 Oxygen Delivery Me thod Room Air Room Air Room Air Documenting provider has reviewed patient's vital signs: yes Common normals: no apparent distress, oriented x3 and healthy appearing HENMT: Common normals: normocephalic Head and scalp: normocephalic Eye: Common normals: PERRL Pupil: PERRL Neck & C-Spine: Common normals: full ROM Chest: Common normals: inspection of chest normal Resp: Common normals: normal respiratory effort and clear to auscultation bilaterally Auscultation: clear to auscultation bilaterally Cardio: Common normals: regular rate and regular rhythm Rate: regular rate Rhythm: regular rhythm GI: Common normals: Normal to inspection, nondistended, normoactive bowel sounds present, soft to palpation and non-tender Palpation: soft : Uterus: U/U Lochia: small Back & Pelvis: Common normals: thoraco-lumbar ROM normal Extremity: Common normals: normal to inspection and full ROM Neuro: Common normals: oriented x3 Psych: Common normals: mental status grossly normal Skin: Common normals: no rashes or lesions noted General skin exam: no rashes or lesions noted Trauma: other (low tranverse abd incision, CDI) OB - DS: Summary Hospital Course Hospital Course: Lisa is a 26 y.o. who was admitted to L & D for induction of labor for polyhydramnios and had a low heart rate documented in previous visit. ?She had an uncomplicated for failure to descend.?The patient feels well. ?The pain is well controlled with current medications. ?She has no new complaints. ?She is pumping and reports things are going well.? the patient has done well.? Vitals have been stable.? She has remained afebrile.? Has a good appetite, is tolerating a general diet. ?She is voiding without difficulty.? She is passing gas and has had a bowel movement.? She is ambulating and denies any dizziness.? Has Small amount of rubra lochia. ?She is planning the mini-pill for prevention. Peripartum Data Procedures: Procedures Operation Date: 10/12/22 20:30 Actual Procedure Side Surgeon p Section Aurea Campos MD complications: none [place] Gender: Male Discharge Plan: Home Status at Discharge Functional status at discharge: independent ambulation Overall status at discharge: patient is progressing back to baseline Time Spent with Patient Time attestation: Total time spent providing and/or coordinating discharge services: Time spent: Less than 30 minutes Discharge Plan Discharge Disposition: Home, Self-Care Date of Admission: 10/10/22 07:07 Attending Provider on Discharge: Tabitha Jarvis Primary Care Provider: Karen Haas Condition: Stable Anticipated Discharge Date/Time: 10/14/22 18:30 Discharge Medications: New docusate sodium 100 mg Capsule 100 mg PO BID PRNQty: 100 0RF ibuprofen 600 mg Tablet 600 mg PO Q6H PRN (Reason: Pain) Qty: 30 0RF oxycodone 5 mg Tablet 5 mg PO 3XD PRN (Reason: Pain) Qty: 21 0RF acetaminophen 500 mg Tablet 1,000 mg PO Q6H PRN (Reason: Pain) Qty: 0 0RF Continued cholecalciferol (vitamin D3) 25 mcg (1,000 unit) capsule 25 mcg PO QDAY DHA 200 mg capsule 200 mg PO DAILY Discontinued valacyclovir [Valtrex] 500 mg tablet 500 mg PO BID Qty: 60 1RF Discharge Orders: Discharge Order (Routine); Ordered 10/15/22 Ordered By: Tabitha Jarvis Patient Education: OB Over the Counter Medication Information, OB /Breast Feeding Additional Instructions: Discharge instructions were reviewed with the patient including signs and symptoms of infection and home going medications Lifting Restrictions: 20 pounds for 6 weeks No not submerge incision under water X 2 weeks? Nothing vaginally for 6 weeks: no tampons or intercourse Do not drive while taking narcotic pain medication(s) Off Work or School for 8 weeks 2-week visit: incision check, discuss infant feeding concerns, review control options and screen for anxiety/depression. 6-week visit for an annual exam. consultation services are available to all mothers and babies for the first year after delivery.? To make an appointment, please call [phone]. Discharge Diet: Regular Follow Up Appointments: [facility] [Provider Group] Forms: [employer] Info Instructions
[2022-10-15 08:15] VITALS: BP 115/76; PULSE 86; RESP 16; TEMP 36.5; O2SAT 95
[2022-10-15] MEDS: DOCUSATE SODIUM 100 MG CAPSULE PO (08:18)
== END 2022-10-15 10:43 | disposition home or self-care (01) | DRG 786 ==
PROVIDERS: Obstetrics & Gynecology; Admitting Provider Advanced Practice Midwife; PCP Family Medicine; Visit Provider Advanced Practice Midwife
PROC: 10D00Z1 Extraction of Products of Conception, Low, Open Approach (ICD-10-PCS; CPT 59514; principal; 2022-10-12 20:15)
DX: O40.3XX0 Polyhydramnios, third trimester, not applicable or unspecified (principal); O41.1230 Chorioamnionitis, third trimester, not applicable or unspecified; O98.32 Other infections with a predominantly sexual mode of transmission complicating childbirth; A60.09 Herpesviral infection of other urogenital tract; O76 Abnormality in fetal heart rate and rhythm complicating labor and delivery; O32.4XX0 Maternal care for high head at term, not applicable or unspecified; O63.1 Prolonged second stage (of labor); O90.81 Anemia of the puerperium; D64.9 Anemia, unspecified; Z37.0 Single live birth; Z3A.39 39 weeks gestation of pregnancy
CPT/HCPCS: 01967; 01968; 36415; 59200; 76942; 82565; 84450; 84460; 84520; 85025; 85027; 85384; 85610; 86850; 86900; 86901; 87635; 88307; 99140; A9270; J0290; J0456; J0690; J1580; J1885; J2270; J2274; J2370; J2405; J2543; J2590; J2795; J3010; J7050; J7120

== ENCOUNTER 2024-07-03 07:06 | Outpatient (CLI) | payer OTHER, SELFPAY ==
--- OUTSIDE RECORDS SUMMARY | 2024-07-03 07:10 | XMS_ITS | Clinical Summary ---
Author Organization [facility] Address [place], [place] [address] Care Team Providers Care Senior Instructional Designer Name Role Phone Karen Haas MD Primary Care Provider [phone]- [phone] Allergies Active Allergy Reactions Criticality Noted Date Comments Cefprozil Rash Medium 07/29/2006 Medications Medication Sig Dispensed Refills Start Date End Date Status escitalopram oxalate (LEXAPRO) 10 mg tabletIndications:A nxiety Take 1 Tablet (10 mg) by mouth every morning. 90 Tablet 10/08/2023 Active levonorgestrel-ethi nyl estrad, 0.1mg-20mcg, (ALESSE-28) 0.1-20 mg-mcg tabletIndications:U ses oral contraception Take 1 Tablet by mouth once daily. 90 Tablet 3 02/29/2024 Active dextroamphetamine-a mphetamine (Adderall XR) 20 mg Extended-Release capsuleIndications: ADD (attention deficit disorder) without hyperactivity Take 1 Capsule (20 mg) by mouth once daily. 30 Capsule 06/19/2024 Active dextroamphetamine-a mphetamine (Adderall XR) 20 mg Extended-Release capsuleIndications: ADD (attention deficit disorder) without hyperactivity Take 1 Capsule (20 mg) by mouth once daily. 30 Capsule 05/18/2024 06/19/2024 Discontinue d(Reorder (E-cancel not sent)) Active Problems Problem Noted Date Diagnosed Date Pap smear for cervical cancer screening 03/08/20 24 Overview (03/08/2024): 01/2024 NIL/HPV Negative Plan: HPV-based testing due in 5 years Genital herpes 03/06/2022 Insomnia, idiopathic 10/13/2021 Anxiety 05/04/2018 ADD (attention deficit disorder) without hyperac tivity 08/24/2011 Resolved Problems Problem Noted Date Diagnosed Date Resolved Date Primigravida in first trimester 03/30/2022 02/29/2024 Overview (03/30/2022): EDC by 8 week US UTI on first ob labs Plan for Heidi to deliver History of genital herpes Immunizations Name Administration Dates Next Due AMB Influenza, IIV3 (Age 6-3 5 mos) (Flu Clinic Only) 06/06/2008 AMB Influenza, IIV3 (Age >=3 years)(Flu Clinic Only) 05/11/2013,04/30/2012,06/19/2010 AMB Influenza, IIV4 PF (=>6 mos Flulaval,Fluzone Fluarix)(Flu Clinic Only) 06/16/2014 COVID-19 vaccine ([employer] NTech 30mcg/0.3mL) PF, MDV 04/12/2021,03/08/2021 DTaP 12/19/2002 DTaP-HIB (TriHIBIT) 03/20/1999, 8,04/24/1998,02/13 Hepatitis A (Peds) 05/27/2015,07/11/2014 Hepatitis B (Peds) 12/11/1998,04/24/1998, 998 Human Papilloma Virus Vaccine 02/08/2013, 012,03/23/2012 Inactivated Polio Vaccine 12/19/2002 Influenza A (H1N1), Inactivated 07/18/2009 Influenza, IIV3 (Age 6-35 mos) 07/11/1999,1998 Influenza, IIV3 (Age >=3 years) 06/23/20 11,05/23/2007,07/29/2006,06/08 Influenza, IIV4 04/29/2022, 8,05/24/2016,05/27,07/18/2009 MENINGOCOCCAL VACCINE 2 VIAL 2MO-55YO (MENVEO) 07/11/2014 MMR 03/19/2009,12/19/2002,03/20/1999 Oral Polio Vaccine 12/11/1998,04/24/1998, 998 Pneumococcal conj 7-Valent (Prevnar 7) 0 Tdap 08/14/2022,04/07/2020,03/19/2009 Varicella Vaccine 03/19/2009,03/20/1999 Family History Medical History Relation Name Comments [...] Tobacco Use Types Packs/Day Years Used Date Smoking Tobacco: Former Smokeless Tobacco: Never Tobacco Cessation:Counseling Given: Yes Alcohol Use Standard Drinks/Week Comments Yes 0 (1 standard drink = 0.6 oz pur e alcohol) social PHQ-2 Answer Date Recorded PHQ-2 TOTAL SCORE 0 02/29/2024 Social Connections Answer Date Recorded Do you often feel lonely or isolated from those around you? 0 02/29/2024 Financial Resource Strain Answer Date R ecorded Difficulty of Paying Living Expenses 2 02/29/2024 Difficulty of Paying Living Expenses 1 02/29/2024 Food Insecurity Answer Date Recorded Do you worry your food will run out before you are able to buy more? 1 02/29/2024 Transportation Needs Answer Date Record ed Does lack of transportation keep you from medica l appointments? 1 02/29/2024 Does lack of transportation keep you from work, meetings or getting things that you need? 1 02/29/2024 Housing Stability Answer Date Recorded What is your housing situation today? 1 02/29/2024 Sex and Gender Information Value Date Recorded Sex Assigned at Not on file Gender Identity Not on file Sexual Orientation Not on file Obstetrics History Para Term AB IAB SAB Ectopic Multiple Livin g Live Births 1 1 1 0 0 0 0 0 0 0 0 Date Outcome GA Total Labor Labor/2nd/3rd Weight Sex Type Anes PTL Adalgisa A1 A5 Name Clin Term C-Secti on Last Filed Vital Signs Vital Sign Reading Time Taken Comments Blood Pressure 110/64 02/29/2024 7:27 AM CDT Pulse 101 02/29/2024 7:27 AM CDT Temperature 36.9 C (98.5 F) 10/13/2021 6:16 PM CDT Respiratory Rate 16 10/13/2021 6:16 PM CDT Oxygen Saturation 99% 02/29/2024 7:27 AM CDT Inhaled Oxygen Concentration - - Weight 57.6 kg (127 lb) 02/29/2024 7:27 AM CDT Height 158.8 cm (5' 2.5) 02/29/2024 7:27 AM CDT Body Mass Index 22.86 02/29/2024 7:27 AM CDT Plan of Treatment Health Maintenance Due Date Last Done Comments COVID-19 vaccine series ( season) 2024 04/12/2021, 03/08/2021 Influenza for age 9-49 04/02/2024 2, 05/04/2018, 05/24/2016, Additional history exists BMI (ht and wt on same day) for age 18+ 02/28/2025 02/29/2024, 03/06/2022, 10/13/2021, Additional history exists Depression screening for age 12+ 02/28/2025 02/29/2024, 10/08/2023, 03/08/2023, Additional history exists Pap test for age 21-65 02/28/2029 , 02/29/2024, 10/21/2020 Tetanus booster 08/14/2032 08/14/2022, 09/0 01/2020, 03/19/2009 Pneumococcal series for age 6-64 Aged Out 05/24/2000 No longer eligible based on patient's age to complete this topic HPV series for age 9-26 Completed 02/09/20 13, 07/07/2012, 03/23/2012 HIV for age 15-65 Completed 03/13/2022 Hepatitis C screening for age 18-79 Completed 03/13/2022 Tdap Completed 08/14/2022, 0901/2020, 03/19/2009 Procedures Procedure Name Priority Date/Time Associated Diagnosis Comments CERAMIC RESEARCH ENGINEER THIN PREP PAP SCREEN IMAGED Routine 02/29/2024 7:30 AM CDT Screening for cervical cancer ANTI HIV 1/2 Routine 03/13/2022 8:16 AM CDT , first, first trimester ANTI HCV Routine 03/13/2022 8:16 AM CDT , first, first trimester from Last 3 Months or Most Recently Relevant to Health Maintenance Results * CERAMIC RESEARCH ENGINEER THIN PREP PAP SCREEN IMAGED [[id number]] (02/29/2024 7:30 AM CDT) Case Report Gynecologic Cytology Report Case: [id number] Authorizing Provider: Karen Haas MD Collected: 02/29/2024 0730 Ordering Location: [facility] Received: 02/29/2024 0817 Clinic First Screen: Jose Ambrosio Specimen: CERAMIC RESEARCH ENGINEER ThinPrep Vial Screening, Cervical 03/07/2024 9:38 AM CDT [facility] INTERPRETATION/ RESULT NEGATIVE FOR INTRAEPITHELIAL LESION OR MALIGNANCY (NIL) (none) 03/07/2024 9:38 AM CDT [facility] IMEN ADEQUACY Satisfactory for evaluation Endocervical component present 03/07/2024 9:38 AM CDT [facility] HPV REQUEST HPV and PAP 03/07/2024 9:38 AM CDT [facility] Date of LMP 02/14/2024 03/07/2024 9:38 AM CDT [facility] Last Pap Date 10/21/20 03/07/2024 9:38 AM CDT [facility] Last Pap Result NIL 9:38 AM CDT [facility] LABOR[facility]ORY Abnormal Pap or [place] Bx in last 5 years No 03/07/2024 9:38 AM CDT [facility] Menstrual Status Regular Periods 03/07/2024 9:38 AM CDT [facility] [place] Bx Done Today No 03/07/2024 9:38 AM CDT [facility] Additional Information None given 03/07/2024 9:38 AM CDT [facility] Comment: Cytology is screened at [facility] - [address], [place] [address] and [facility] - [address], [place] [address] and [facility] - [address] [place] [address] Interpreted at [facility] - [address], [place] [address] Automated Review Successful 03/07/2024 9:38 AM CDT [facility] Comment:Specimen processed s uccessfully by automated interchange agent device, ThinPrep Imaging System, [employer] ANCILLARY TESTING CERAMIC RESEARCH ENGINEER HPV Ordered, Please see separate report 03/07/2024 9:38 AM CDT [facility] Note The pap test is a screening technique, not a diagnostic procedure. It is used primarily to screen for squamous cancers and precursor lesions. Published studies have shown that it is subject to both false negative and false positive results. The pap test should not be used as the sole means to diagnose or exclude pre-malignant and malignant lesions. 03/07/2024 9:38 AM CDT [facility] Other (Cervical) Non-Blood / Unknown 02/29/2024 7:30 AM CDT 02/29/2024 8:17 AM CDT Karen Haas MD PATHOLOGY/CYTOLOGY [facility] [address] [place] [address], * ANTI HCV (03/13/2022 8:16 AM CDT) HEPATITIS C ANTIBODY Non-React romario Non-React romario 03/13/2022 4:21 PM CDT [facility] TR[facility] LABORATORY Comment:Antibodies to HCV no t detected; does not exclude the possibility of exposure to HCV. Blood BLOOD SPECIMEN / Unknown Venipuncture / Unknown 03/13/2022 8:16 AM CDT 03/13/2022 8:18 AM CDT Karen Haas MD SEND OUTS [facility] [address] [place] [address], * ANTI HIV 1/2 (03/13/2022 8:16 AM CDT) HIV-1/HIV-2 ANTIBODY Non-Reacti ve Non-Reacti ve 03/13/2022 3:37 PM CDT [facility] TRAL LABORATORY Comment:HIV-1 p24 and HIV-1/ HIV-2 Ab not detected. Blood BLOOD SPECIMEN / Unknown Venipuncture / Unknown 03/13/2022 8:16 AM CDT 03/13/2022 8:18 AM CDT Karen Haas MD [facility] [address] [place] [address], from Last 3 Months or Most Recently Relevant to Health Maintenance Care Teams Senior Instructional Designer Relationship Specialty Start Date End Date Karen Haas MD [address] [place] [address] PCP - General 05/08/09
--- NOTE | 2024-07-03 07:15 | CRLHL7_ITS ---
For Patients: As a result of the Century Cures Act, medical imaging exams and procedure reports are released immediately into your electronic medical record. You may view this report before your referring provider. If you have questions, please contact your health care provider. INDICATION: 28 year-old female. First trimester scan, establish dates. COMPARISON: None. TECHNIQUE: Real-time jacobo-scale imaging of the pelvis was performed. FINDINGS: Sonographic imaging demonstrates a single living intrauterine gestation. The embryo demonstrates a regular cardiac rate measuring 125 beats per minute. The embryo`s crown-rump length measurement of 0.8 cm corresponds to a gestational age of 6 weeks 5 days with a sonographic due date of February 21, 2025. There is a normal-appearing yolk sac measuring up to 2.4 mm. There are no gross abnormalities noted within the embryo at this early state of development. The placenta has not yet developed. The gestational sac has a normal appearance and there is no evidence of a perigestational hemorrhage. The amount of fluid within the sac appears appropriate for gestational age. The cervix is closed. The myometrium appears normal. The left ovary is not seen. The right ovary measures 3.7 x 2.1 x 2.3 cm and contains a small ovarian cyst measuring 3.6 x 1.9 x 2.0 cm which may contain a small amount of hemorrhagic debris/protein. There are no suspicious fluid collections noted in the cul-de-sac. IMPRESSION: Normal first trimester OB ultrasound exam. Gestational age calculated at 6 weeks 5 days with a sonographic due date of February 21, 2025. Dictated by Scooter Georges MD @ 07/03/2024 12:03:09 PM (Electronically Signed)
== END 2024-07-03 07:07 | disposition home or self-care (01) ==
LOC: US 07:08
PROVIDERS: PCP Family Medicine; Visit Provider Registered Nurse
DX: Z34.91 Encounter for supervision of normal pregnancy, unspecified, first trimester (principal); Z3A.01 Less than 8 weeks gestation of pregnancy
CPT/HCPCS: 76817

== ENCOUNTER 2024-07-03 08:30 | Outpatient (CLI) | payer OTHER, SELFPAY ==
--- OUTSIDE RECORDS SUMMARY | 2024-07-03 08:32 | XMS_ITS | Clinical Summary ---
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 MECHANIC HELPER THIN PREP PAP SCREEN IMAGED Routine 02/29/2024 7:30 AM CDT Screening for cervical cancer ANTI HIV 1/2 Routine 03/13/2022 8:16 AM CDT , first, first trimester ANTI HCV Routine 03/13/2022 8:16 AM CDT , first, first trimester from Last 3 Months or Most Recently Relevant to Health Maintenance Results * FORMING MACHINE UPKEEP MECHANIC HELPER THIN PREP PAP SCREEN IMAGED [[id number]] (02/29/2024 7:30 AM CDT) Case Report Gynecologic Cytology Report Case: [id number] Authorizing Provider: Karen Haas MD Collected: 02/29/2024 0730 Ordering Location: [facility] Received: 02/29/2024 0817 Clinic First Screen: Jose Ambrosio Specimen: FORMING MACHINE UPKEEP MECHANIC HELPER ThinPrep Vial Screening, Cervical 03/07/2024 9:38 AM CDT [facility] INTERPRETATION/ RESULT NEGATIVE FOR INTRAEPITHELIAL LESION OR MALIGNANCY (NIL) (none) 03/07/2024 9:38 AM CDT [facility] IMEN ADEQUACY Satisfactory for evaluation Endocervical component present 03/07/2024 9:38 AM CDT [facility] HPV REQUEST HPV and PAP 03/07/2024 9:38 AM CDT [facility] Date of LMP 02/14/2024 03/07/2024 9:38 AM CDT [facility] Last Pap Date 10/21/20 03/07/2024 9:38 AM CDT [facility] Last Pap Result NIL 9:38 AM CDT [facility] ENTRPR LAB[facility]ORY Abnormal Pap or [place] Bx in last 5 years No 03/07/2024 9:38 AM CDT [facility] EN[facility]AL LAB[facility]ORY Menstrual Status Regular Periods 03/07/2024 9:38 AM CDT [facility] [place] Bx Done Today No 03/07/2024 9:38 AM CDT [facility] Additional Information None given 03/07/2024 9:38 AM CDT [facility] Comment: Cytology is screened at [facility] - [address], [place] [address] and [facility] - [address], [place] [address] and [facility] - [address] [place] [address] Interpreted at [facility] - [address], [place] [address] Automated Review Successful 03/07/2024 9:38 AM CDT [facility] Comment:Specimen processed s uccessfully by automated compressor assembler device, ThinPrep Imaging System, [employer] ANCILLARY TESTING FORMING MACHINE UPKEEP MECHANIC HELPER HPV Ordered, Please see separate report 03/07/2024 9:38 AM CDT [facility] Note The pap test is [...] and malignant lesions. 03/07/2024 9:38 AM CDT [facility] Other (Cervical) Non-Blood / Unknown 02/29/2024 7:30 AM CDT 02/29/2024 8:17 AM CDT Karen Haas MD PATHOLOGY/CYTOLOGY [facility] [address] [place] [address], * ANTI HCV (03/13/2022 8:16 AM CDT) HEPATITIS C ANTIBODY Non-React romario Non-React romario 03/13/2022 4:21 PM CDT [facility] TR[facility] LAB[facility] Comment:Antibodies to HCV no t detected; does not exclude the possibility of exposure to HCV. Blood BLOOD SPECIMEN / Unknown Venipuncture / Unknown 03/13/2022 8:16 AM CDT 03/13/2022 8:18 AM CDT Karen Haas MD SEND OUTS [facility] [address] [place] [address], * ANTI HIV 1/2 (03/13/2022 8:16 AM CDT) HIV-1/HIV-2 ANTIBODY Non-Reacti ve Non-Reacti ve 03/13/2022 3:37 PM CDT [facility] Comment:HIV-1 p24 and HIV-1/ HIV-2 Ab not detected. Blood BLOOD SPECIMEN / Unknown Venipuncture / Unknown 03/13/2022 8:16 AM CDT 03/13/2022 8:18 AM CDT Karen Haas MD [facility] [address] [place] [address], from Last 3 Months or Most Recently Relevant to Health Maintenance Care Teams Phonograph Mechanic Relationship Specialty Start Date End Date Karen Haas MD [address] [place] [address] PCP - General 05/08/09
== END 2024-07-03 08:31 | disposition home or self-care (01) ==
PROVIDERS: PCP Family Medicine; Visit Provider Advanced Practice Midwife
DX: Z34.91 Encounter for supervision of normal pregnancy, unspecified, first trimester (principal); Z3A.01 Less than 8 weeks gestation of pregnancy
CPT/HCPCS: 83021; 86592; 86703; 86704; 86706; 86762; 86787; 86803; 86850; 86900; 86901; 87086; 87186; 87340

== ENCOUNTER 2024-08-04 11:28 | Outpatient (CLI) | payer OTHER, SELFPAY | END 2024-08-04 11:29 | disposition home or self-care (01) | LOC: NFLDREF 11:29 | PROVIDERS: PCP Family Medicine; Visit Provider Obstetrics & Gynecology | DX: Z34.91 Encounter for supervision of normal pregnancy, unspecified, first trimester (principal); Z3A.11 11 weeks gestation of pregnancy | CPT/HCPCS: 87086; 87186 ==

== ENCOUNTER 2024-10-09 13:49 | Outpatient (CLI) | payer OTHER, BC, SELFPAY | END 2024-10-09 13:50 | disposition home or self-care (01) | LOC: NFLDREF 13:49 | PROVIDERS: PCP Family Medicine; Visit Provider Obstetrics & Gynecology | DX: N39.0 Urinary tract infection, site not specified (principal); B95.7 Other staphylococcus as the cause of diseases classified elsewhere | CPT/HCPCS: 87086; 87186 ==

== ENCOUNTER 2024-11-10 12:29 | Outpatient (CLI) | payer BC, SELFPAY | END 2024-11-10 12:30 | disposition home or self-care (01) | LOC: NFLDREF 11-14 02:34 | PROVIDERS: PCP Family Medicine; Referring Provider Family Medicine; Visit Provider Obstetrics & Gynecology | DX: Z34.82 Encounter for supervision of other normal pregnancy, second trimester (principal) | CPT/HCPCS: 87086 ==

== ENCOUNTER 2024-11-29 08:38 | Outpatient (CLI) | payer BC, SELFPAY | END 2024-11-29 08:39 | disposition home or self-care (01) | LOC: NFLDREF 12-01 23:35 | PROVIDERS: PCP Family Medicine; Referring Provider Family Medicine; Visit Provider Obstetrics & Gynecology | DX: Z34.83 Encounter for supervision of other normal pregnancy, third trimester (principal) | CPT/HCPCS: 86592; 87086; 87186 ==

== ENCOUNTER 2025-01-01 15:25 | Outpatient (CLI) | payer BC, SELFPAY | END 2025-01-01 15:26 | disposition home or self-care (01) | LOC: NFLDREF 01-05 07:09 | PROVIDERS: PCP Family Medicine; Referring Provider Family Medicine; Visit Provider Advanced Practice Midwife | DX: N39.0 Urinary tract infection, site not specified (principal) | CPT/HCPCS: 87086 ==

== ENCOUNTER 2025-01-08 13:05 | Outpatient (CLI) | payer BC, SELFPAY ==
[2025-01-08] VITALS (10 sets, daily range): BP systolic 107; BP diastolic 66; PULSE 68–79; RESP 16; TEMP 36.9; O2SAT 96–98
[2025-01-08 14:28] LABS: Appearance Urine Cloudy (Clear); Bilirubin Urine Negative (Negative); Blood Urine Negative (Negative); Color Urine Yellow (Yellow); Glucose Urine Negative (Negative); Ketones Urine 3+ (Negative); Leukocyte Esterase Urine 2+ (Negative); Nitrite Urine Negative (Negative); Protein Urine 1+ (Negative); Urobilinogen Urine 0.2 (0.2-1.0)
[2025-01-08 14:31] LABS: Amnisure Rom* Negative
[2025-01-08 14:41] LABS: Amorphous Sediment Urine Moderate; Bacteria Urine Moderate; RBC Urine 0-2 (0-2); Squamous Epithelial Cell Urine Many (None-Few)
[2025-01-08 14:42] LABS: Mucus Urine Few
[2025-01-08 15:27] LABS: Bacterial Vaginosis* Negative (Negative); Candida glab/krus NOT DETECTED (No Detected); Candida species DETECTED (No Detected); Trichomonas vaginalis NOT DETECTED (No Detected)
[2025-01-08] MEDS: FLUCONAZOLE 150 MG TABLET PO (15:58)
--- NOTE | 2025-01-08 16:57 | PC.OBNST ---
NST Note NST Note Start: 01/08/25 13:32 Freq: ONCE Status: Active Protocol: Document 01/08/25 16:55 MMB (Rec: 01/08/25 16:56 MMB [id number]) NST Note 2 Para (# of births) 1 EDC 02/21/25 Gestational Age In 33 Weeks & 5 Days Weeks & Days Patient Presented Leaking fluid with Complaint(s) of Reactive Yes Appropriate for Yes Gestational Age MANNY Crandall RN Date 01/08/25 Reactive Yes Appropriate for Yes Gestational Age MANNY Garcia RN Date 01/08/25 OB NST charge Yes Complete NST Note Yes via Write Note The provider's electronic signature indicates the NST is reactive/appropriate for gestational age. *Note to provider: If an addendum is required, open the patient's chart and click on the note under the Nurse/Allied Health tab.
== END 2025-01-08 16:45 | disposition home or self-care (01) ==
LOC: OB OUT 13:05 → OB 13:06
PROVIDERS: PCP Family Medicine; Visit Provider Obstetrics & Gynecology
DX: O47.03 False labor before 37 completed weeks of gestation, third trimester (principal); Z3A.33 33 weeks gestation of pregnancy
CPT/HCPCS: 59025; 81001; 81003; 81513; 84112; 87086; 87481; 87661; G0463; A9270

== ENCOUNTER 2025-01-12 14:26 | Outpatient (CLI) | payer BC, SELFPAY ==
--- NOTE | 2025-01-12 14:45 | CRLHL7_ITS ---
For Patients: As a result of the Century Cures Act, medical imaging exams and procedure reports are released immediately into your electronic medical record. You may view this report before your referring provider. If you have questions, please contact your health care provider. OBSTETRICAL ULTRASOUND LIMITED, 01/12/2025 LILY by US: 02/21/2025. GA: 34 w, 2 d. INDICATION: Large for dates. TECHNIQUE: Real time jacobo scale imaging of the fetus was performed. Transabdominal. Single Comparison: 07/03/2024. position: Vertex. Cervix: Not visualized. Technique: Transabdominal. Placenta/cord: Posterior. Technique: Transabdominal. Heart rate: 131 bpm. BPD: 9.1 cm. 36 w, 5 d, 96.5 percent. HC: 34.6 cm. 40 w, 0 d, >97 percent. AC: 32.6 cm. 36 w, 4 d, 96.5 percent. FL: 6.7 cm. 34 w, 3 d, 43.0 percent. FL/AC ratio: 20.5 percent. HC/AC ratio: 1.06. age by this US: 37 w, 0 d. LILY by this US: 02/02/2025. EFW: 2915 g. Weight: 6 lbs, 7 oz. Percentile by LILY: 93.8 percent. IMPRESSION: 1. Sonographic gestational age 37 weeks 0 days and sonographic due date 02/02/2025. Sonographic age is 19 days ahead of the clinical age. 2. Estimated weight 94th percentile. Abdominal circumference 97th percentile. Head circumference greater than 97th percentile. Bo Bonilla M.D. Diagnostic Radiologist [email or web address] MARINA/oumar JR/Dictated by: Bo Bonilla MD @ 01/12/2025 3:16:00 PM (Electronically Signed)
== END 2025-01-12 14:27 | disposition home or self-care (01) ==
LOC: US 14:26
PROVIDERS: PCP Family Medicine; Visit Provider Obstetrics & Gynecology
DX: O36.63X0 Maternal care for excessive fetal growth, third trimester, not applicable or unspecified (principal); Z3A.34 34 weeks gestation of pregnancy
CPT/HCPCS: 76816; 82728

== ENCOUNTER 2025-01-25 13:36 | Outpatient (CLI) | payer BC, SELFPAY ==
--- NOTE | 2025-01-25 14:00 | CRLHL7_ITS ---
For Patients: As a result of the Cures Act, medical imaging exams and procedure reports are released immediately into your electronic medical record. You may view this report before your referring provider. If you have questions, please contact your health care provider. OB ULTRASOUND LILY by US: 02/21/2025. GA: 36 w, 1 d. Single. Comparison: 01/12/2025, 07/03/2024. INDICATION: Polyhydramnios. Full ANGELICA. TECHNIQUE: Real time grayscale imaging of the fetus was performed. Transabdominal. CERVIX: Not visualized. POSITIONING: Vertex. AMNIOTIC FLUID: 29.03 cm ANGELICA. 9.6 cm. SDP (N: greater than 2 x 1 cm) PLACENTA: Technique: Transabdominal. PLACENTA POSITION: Posterior. DOPPLER: heart rate: 141 bpm. IMPRESSION: Amniotic fluid single deepest pocket 9.6 cm. ANGELICA 29.0 cm. Bo Bonilla M.D. Diagnostic Radiologist [email or web address] MARINA/[email or web address] arceo/Dictated by: Bo Bonilla MD @ 01/25/2025 3:59:00 PM (Electronically Signed)
--- OUTSIDE RECORDS SUMMARY | 2025-01-26 01:04 | XMS_ITS | Clinical Summary ---
Author Organization [employer] [facility] Address [address] [place] [address] Care Team Providers Care Slicing Machine Feeder Name Role Phone Karen Haas MD Primary Care Provider [phone] Allergies Active Allergy Reactions Criticality Noted Date Comments Cefprozil Rash Medium 07/29/2006 Medications escitalopram oxalate 10 mg tabletIndicatio ns:Anxiety TAKE 1 TABLET(10 MG) BY MOUTH EVERY MORNING 90 Tablet 1 12/12/2024 Active Active Problems Problem Noted Date Diagnosed Date [...] Heidi to deliver History of genital herpes Encounters Date Type Department Care Team Description 01/12/2025 Orders Only [facility] Scanner 1 scan: (1-Ord) [facility], OB F/U, 01/12/2025 12/11/[address] [place] [address] Karen Haas MD Refill Request (Escitalopram Oxalate) from Last 3 Months Immunizations Immunization Administration Dates Next Due AMB Influenza, IIV3 (Age 6-3 5 mos) (Flu Clinic Only) 06/06/2008 AMB Influenza, IIV3 (Age >=3 years)(Flu Clinic Only) 05/11/2013,04/30/2012,06/19/2010 AMB Influenza, IIV4 PF (=>6 mos Flulaval,Fluzone Fluarix)(Flu Clinic Only) 06/16/2014 COVID-19 vaccine ([employer] 30mcg/0.3mL) PF, MDV 04/12/2021,03/08/2021 DTaP 12/19/2002 DTaP-HIB [...] PHQ-2 Answer Date Recorded PHQ-2 TOTAL SCORE 2 07/31/2024 Social Connections Answer Date Recorded Do you [...] is your housing situation today? 1 02/29/2024 Utilities Answer Date Recorded Do you have trouble paying f or utilities (for example, heat, electricity, water, phone)? 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 Not on file Not on file Not on file Obstetrics History Para Term [...] vaccine series ( season) 2024 04/12/2021, 03/08/2021 BMI (ht and wt on same day) for age 18+ 02/28/2025 02/29/2024, 03/06/2022, 10/13/2021, Additional history exists Influenza Vaccine (Season Ended) 2025 04/29/2022, 05/04/2018, 05/24/2016, Additional history exists Depression screening for age 12+ 07/31/2025 07/31/2024, 02/29/2024, 10/08/2023, Additional history exists Pap test for age 21-65 02/28/2029 , 02/29/2024, 10/21/2020 Tetanus booster 08/14/2032 08/14/2022, 09/0 01/2020, 03/19/2009 Hepatitis B series for 19+ Completed 12/11, 04/24/1998, 02/13/1998 Pneumococcal series for age 6-49 Aged Out 05/24/2000 No longer eligible based on patient's age to complete this topic HIV for age 15-65 Completed 03/13/2022 Hepatitis C screening for age 18-79 Completed 03/13/2022 Tdap Completed 08/14/2022, 0901/2020, 03/19/2009 Procedures Procedure Name Priority Date/Time Associated Diagnosis Comments SCAN-ULTRASOUND REPORT 01/12/2025 12:00 AM CDT COMPUTER SUPPORT SPECIALIST INSTRUCTOR THIN PREP PAP SCREEN IMAGED Routine 02/29/2024 7:30 AM CDT Screening for cervical cancer ANTI HIV 1/2 Routine 03/13/2022 8:16 AM CDT , first, first trimester (HC) ANTI HCV Routine 03/13/2022 8:16 AM CDT , first, first trimester (HC) from Last 3 Months or Most Recently Relevant to Health Maintenance Results * SCAN-ULTRASOUND REPORT (01/12/2025 12:00 AM CDT) Anatomical Region Laterality Modality Other us Scanner OTHER Final Result * COMPUTER SUPPORT SPECIALIST INSTRUCTOR THIN PREP PAP SCREEN IMAGED [[id number]] (02/29/2024 7:30 AM CDT) Case Report Gynecologic Cytology Report Case: [id number] Authorizing Provider: Karen Haas MD Collected: 02/29/2024 0730 Ordering Location: [facility] Received: 02/29/2024 0817 Clinic First Screen: Jose Ambrosio Specimen: COMPUTER SUPPORT SPECIALIST INSTRUCTOR ThinPrep Vial Screening, Cervical 03/07/2024 9:38 AM CDT [facility] INTERPRETATION/ RESULT NEGATIVE FOR INTRAEPITHELIAL LESION OR MALIGNANCY (NIL) (none) 03/07/2024 9:38 AM CDT [facility] at 0938 CDT SPECIMEN ADEQUACY Satisfactory for evaluation Endocervical component present 03/07/2024 9:38 AM CDT [facility]-C ENTRAL LABORATORY HPV REQUEST HPV and PAP 03/07/2024 9:38 AM CDT [facility] Date of LMP 02/14/2024 03/07/2024 9:38 AM CDT [facility] Last Pap Date 10/21/20 03/07/2024 9:38 AM CDT [facility] Last Pap Result NIL 9:38 AM CDT [facility] Abnormal Pap or [place] Bx in last 5 years No 03/07/2024 9:38 AM CDT [facility] Menstrual Status Regular Periods 03/07/2024 9:38 AM CDT [facility] [place] Bx Done Today No 03/07/2024 9:38 AM CDT [facility] Additional Information None given 03/07/2024 9:38 AM CDT [facility] Comment: Cytology is screened at [facility] - [address] [address] and [facility] - [address], [place] [address] and [facility] - [address] [place] [address] Interpreted at [facility] - [address], [place] [address] Automated Review Successful 03/07/2024 9:38 AM CDT [facility] Comment:Specimen processed s uccessfully by automated dye lab technician device, ThinPrep Imaging System, [employer] ANCILLARY TESTING COMPUTER SUPPORT SPECIALIST INSTRUCTOR HPV Ordered, Please see separate report 03/07/2024 9:38 AM CDT [facility] Note The pap test is a [...] and malignant lesions. 03/07/2024 9:38 AM CDT [facility] Other (Cervical) Non-Blood / Unknown 02/29/2024 7:30 AM CDT 02/29/2024 8:17 AM CDT Karen Haas MD PATHOLOGY/CYTOLOGY Final R esult [facility] [address] [place] [address], * ANTI HCV (03/13/2022 8:16 AM CDT) HEPATITIS C ANTIBODY Non-React romario Non-React romario 03/13/2022 4:21 PM CDT [facility] TR[facility] Comment:Antibodies to HCV no t detected; does not exclude the possibility of exposure to HCV. Blood BLOOD SPECIMEN / Unknown Venipuncture / Unknown 03/13/2022 8:16 AM CDT 03/13/2022 8:18 AM CDT Karen Haas MD SEND OUTS Final Resu lt Performing Organization Address City/[facility]/ZIP Co de Phone Number [facility] [address] [place] [address], [place] * ANTI HIV 1/2 (03/13/2022 8:16 AM CDT) HIV-1/HIV-2 ANTIBODY Non-Reacti ve Non-Reacti ve 03/13/2022 3:37 PM CDT [facility] Comment:HIV-1 p24 and HIV-1/ HIV-2 Ab not detected. Blood BLOOD SPECIMEN / Unknown Venipuncture / Unknown 03/13/2022 8:16 AM CDT 03/13/2022 8:18 AM CDT Karen Haas MD SEND OUTS Final Resu lt [facility] [address] [place] [address], from Last 3 Months or Most Recently Relevant to Health Maintenance Insurance [facility] * Guarantor: [employer] Account Type Relation to Patient Date of Phone Billing Address Occ Health/[employer] Employer [phone] 3xpat (Home) ATTN [employer] [address] [place] [address] Care Teams Slicing Machine Feeder Relationship Specialty Start Date End Date Karen Haas MD [address] [place] [address] [place] [address] PCP - General 05/08/09
== END 2025-01-25 13:37 | disposition home or self-care (01) ==
LOC: US 13:36
PROVIDERS: PCP Family Medicine; Visit Provider Obstetrics & Gynecology
DX: O40.3XX0 Polyhydramnios, third trimester, not applicable or unspecified (principal); Z3A.36 36 weeks gestation of pregnancy
CPT/HCPCS: 76815; 87081; 87653

== ENCOUNTER 2025-01-26 09:57 | Outpatient (RCR) | payer BC, SELFPAY ==
--- NOTE | 2025-01-15 16:20 | ONC.NURNOTE ---
Diagnosis: UNRULY in
[2025-01-26 10:05] VITALS: BP 114/73; PULSE 87; TEMP 36.2; O2SAT 97
[2025-01-26] MEDS: IRON DEXTRAN COMPLEX 25 MG in 0.9 % SODIUM CHLORIDE 100 ml 100 ML 402 MG IVPB (10:37)
[2025-01-26 10:55] VITALS: BP 115/70; PULSE 91; RESP 16; O2SAT 97
[2025-01-26] MEDS: IRON DEXTRAN COMPLEX 975 MG in 0.9 % SODIUM CHLORIDE 250 ml 250 ML 270 MG IVPB (11:48)
== END 2025-07-25 23:59 | disposition home or self-care (01) ==
LOC: CCIC 09:57
PROVIDERS: PCP Family Medicine; Visit Provider Clinical Nurse Specialist
DX: O99.013 Anemia complicating pregnancy, third trimester (principal); D50.9 Iron deficiency anemia, unspecified
CPT/HCPCS: 96365; J1750; J7050

== ENCOUNTER 2025-02-09 09:13 | Inpatient (IN) | payer BC, SELFPAY ==
[2025-02-09] VITALS (46 sets, daily range): BP systolic 90–160; BP diastolic 62–88; PULSE 73–115; RESP 14–20; TEMP 35.8–36.4; O2SAT 89–100; BMI 30.9
--- NOTE | 2025-02-09 08:58 | P.OBHP_ITS ---
OB - H&P: HPI Labor/Induction History of Present Illness Date Seen: 02/09/25 Chief complaint: Maternity Narrative: The patient is a 29 year old 2 para 1 at 38w2d gestation by first trimester ultrasound, who presents as a TOLAC with spontaneous onset of labor. is complicated by history of , polyhydramnios, suspected macrosomia, genital herpes on suppressive therapy, ADHD and anxiety. As she noted onset of regular/painful contractions early this morning. At present, they are occurring about every 2-3 minutes and rated a 7/10 in severity. RN exam performed on admission, 6.5//-2. I presented to the bedside, or patient affirmed the above history. Denies any vaginal bleeding or leaking of fluid. Endorses movement, though it does feel somewhat less from baseline. Specific Issues/Plans Partner: Chilo. Son: Claudio Baby: Boy! H&P:?By Dr. Greene on 02/01/25 Would like membrane sweep at 39 weeks # Previous C/S, considering TOLAC? * consult OB for consent, given copy of consent at NOB * Chance of successful : 54.8% * Plans: TOLAC w/o IOL and schedule RLTCS at 41 weeks * TOLAC consent signed 01/12 * Growth US at 36 weeks?(ordered) #Suspected macrosomia # Mild polyhydramnios - Dx 01/12, ANGELICA 24.34cm [ x] US for fluid check in 2 weeks: 01/25/25: ANGELICA:29cm, SDP: 9.6cm still on mild range- re check at 38 week US [ ] Next growth US at 38 weeks #Hx genital herpes Suppression valtrex 500mg BID at 36 weeks- ordered 01/25/25 #? ADHD Discontinued Adderall 07/04/2024 Restart Adderall ER 10mg daily-08/18/24 Level 2 US ordered-08/18/24 #? Anxiety On Lexapro 20mg? #Not immune to Hep B: booster 08/04/2024 #UTI in - Klebsiella pneumoniae: intermediate sensitivity to nitrofurantoin (which is what she was treated with 07/2024), #Recurrent ABU Repeat UCx for YOSEPH on 08/04/24: Klebsiella pneumoniae tx'd w/ augmentin UCx for YOSEPH 10/09/24: Staphylococci S epidermidis, pansensitive, treated with nitrofurantoin. 24 week: negative UC 11/29 UC: S epidermidis, pansensitive, treated with nitrofuranoin (responded previously, no other good oral options) [x] 32 week UC as test of cure: negative # NIPT: low risk for aneuploidy, male. Carrier for alpha-thalassemia Referral to [facility] Recommended that her partner be tested for carrier status Imaging:??? Level 2 ultrasound completed on 10/19/2024: Breech presentation, posterior fundal placenta, three-vessel umbilical cord, normal amount of amniotic fluid. EFW: 95 percentile, AC: 93rd percentile. Normal anatomy. Cervical length: 5.2 cm. ? Vaccinations:?? COVID: declines Flu: declines Tdap: 01/01/25? RSV: NA 32 week mental health: 01/01/25 Last pap:? 02/29/24 NIL, neg HPV? Meds Home Medications and Allergies Home Medications ?Medication ?Instructions ?Recorded ?Confirmed ?Type docosahexaenoic acid 200 mg 200 mg PO DAILY 06/10/22 0 02/09/25 History capsule ( DHA) escitalopram oxalate 20 mg tablet 20 mg PO QDAY 02/09/25 History (Lexapro) valacyclovir 1 gram tablet 1,000 mg PO QDAY #30 tabs 0 02/01/25 02/09/25 Rx (Valtrex) dextroamphetamine-amphetamine ER 10 mg PO QAM #30 caps 02/08/25 02/09/25 Rx 10 mg 24hr capsule,extend release (Adderall XR) Allergies Allergy/AdvReac Type Severity Reaction Status Date / Time cefprozil Allergy Mild Rash Verified 02/09/25 10:07 OB - H&P: Exam Physical Exam: Narrative: General: Alert and oriented, in distress secondary to pain Psych: Appropriate mood affect Abdomen: Gravid, nontender. NST: Reactive but entirely reassuring. Baseline of 130 beats per minute, moderate variability, 15 x 15 accelerations seen, rare variable deceleration. Tracing is overall reassuring. [place]: Froylan every 2-3 minutes OB - Problem Based A/P Additional Plan (1) Polyhydramnios: Status: Acute (2) History of delivery: Status: Acute (3) : Status: Acute (4) Genital herpes: Status: Acute Plan Lisa is a 29yo at 38w2d gestation by first trimester ultrasound, who presents as a TOLAC with spontaneous onset of labor. is complicated by history of , polyhydramnios, suspected macrosomia, genital herpes on suppressive therapy, ADHD and anxiety. - Cervix is 6/80/- 2 on admission. - Stat IV placement, with CBC and type and screen on admission - Notify Anesthesia of request for epidural - Notified OR team of TOLAC in active labor - We again briefly reviewed the risk/benefits of TOLAC, where Lisa affirmed her desire to proceed. TOLAC consent was signed in clinic. - Blood type AB-positive - GBS negative - EFW 2915g at 94%ile on US on 01/12 - anticipate next exam in 2 hours, sooner as clinically indicated.
[2025-02-09] MEDS: LACTATED RINGERS 1000 ML 1,000 ML 1200 ML IV (09:15)
[2025-02-09 09:17] LABS: Hematocrit 38.4 % (33.0-51.0); Hemoglobin* 12.0 gm/dL (12.0-16.0); Immature Granulocytes Pct Auto 0.2 %; Mean Corpuscular HGB Conc 31 gm/dL (32-36); Mean Corpuscular Hemoglobin 24 pg (26-34); Mean Corpuscular Volume 76 fL (80-100); RDW Coefficient of Variation % 20.1 % (11.5-15.5); Red Blood Count 5.07 m/uL (4.00-5.20); White Blood Count* 11.90 K/uL (4.50-11.00)
[2025-02-09 09:19] LABS: Immature Granulocytes Abs Auto 0.00 K/uL (0.00-0.30); Lymphocytes Absolute Auto 1.90 K/uL (0.90-2.90); Slide Review Reflex No
[2025-02-09] MEDS: ROPIVACAINE 0.2% 100 ml 100 ML 12 MG EPIDURAL (09:43)
[2025-02-09] MEDS: LIDOCAINE 2% (PF) 5 ML VIAL EPIDURAL (09:43)
[2025-02-09] MEDS: ROPIVACAINE 0.2 % PF 10 ML INJ 20 MG EPIDURAL (09:43)
--- NOTE | 2025-02-09 09:45 | P.ANBPRC_ITS ---
[facility] Medical History care and examination immediately after delivery ?Z39.0 - Encounter for care and examination of mother immediately after delivery (ICD-10) Prolonged second stage (of labor) ?O63.1 - Prolonged second stage (of labor) (ICD-10) macrosomia during in third trimester ?O36.63X0 - Maternal care for excessive growth, third trimester, not applicable or unspecified (ICD-10) Chorioamnionitis (10/12/22) ?O41.1290 - Chorioamnionitis, unspecified trimester, not applicable or unspecified (ICD-10) Arrest of descent, delivered, current hospitalization (10/12/22) ?O62.1 - Secondary uterine inertia (ICD-10) No significant past medical history Polyhydramnios affecting in third trimester ?O40.3XX0 - Polyhydramnios, third trimester, not applicable or unspecified (ICD-10) Urinary tract infection affecting ?O23.40 - Unspecified infection of urinary tract in , unspecified trimester (ICD-10) Surgical History Status post primary low transverse section (10/12/22) ?Z98.891 - History of uterine scar from previous surgery (ICD-10) History of tympanostomy ?Z98.890 - Other specified postprocedural states (ICD-10) H/O wisdom tooth extraction ?K08.409 - Partial loss of teeth, unspecified cause, unspecified class (ICD- 10) S/P tonsillectomy and adenoidectomy ?Z90.89 - Acquired absence of other organs (ICD-10) Family History Mother Asthma Bronchiolitis Father Heart disease Sister No problems noted. Brother Heart disease Brother Diabetes Brother Heart disease Aunt Thyroid disease Paternal Grandfather Brain cancer Family/Other Diabetes Social History What is your current living situation?: I presently have a place to live Problems where you live: no known problems In the past 12 months, utilities in danger of being shut off: no In past 12 months, lack of transportation kept you from medical appts, meetings, work, or getting things needed for daily living: no In the past 12 mos, have been you worried that your food would run out before you had money to buy more?: never true In the past 12 mos, the food you bought just didn't last and you didn't have money to buy more?: never true Smoking Status: Former smoker How often does anyone, including family, friends and others, physically hurt you : never How often does anyone, including family, friends and others, insult or talk down to you: never How often does anyone, including family, friends and others, threaten you with harm: never How often does anyone, including family, friends and others, scream or curse at you: never Meds Home Medications and Allergies Home Medications ?Medication ?Instructions ?Recorded ?Confirmed ?Type docosahexaenoic acid 200 mg 200 mg PO DAILY 06/10/22 0 02/01/25 History capsule ( DHA) escitalopram oxalate 20 mg tablet 20 mg PO QDAY 02/01/25 History (Lexapro) valacyclovir 1 gram tablet 1,000 mg PO QDAY #30 tabs 0 02/01/25 02/01/25 Rx (Valtrex) dextroamphetamine-amphetamine ER 10 mg PO QAM #30 caps 02/08/25 Rx 10 mg 24hr capsule,extend release (Adderall XR) Allergies Allergy/AdvReac Type Severity Reaction Status Date / Time cefprozil Allergy Mild Rash Verified 02/01/25 12:52 Results Labs Labs: Laboratory Results - last 24 hr 02/09/25 09:10 WBC 11.90 H RBC 5.07 Hgb 12.0 Hct 38.4 MCV 76 L MCH 24 L MCHC 31 L RDW Coeff of Hollie 20.1 H Plt Count 210 Neut % (Auto) 77.6 H Lymph % (Auto) 16.1 L [place] % (Auto) 5.6 Eos % (Auto) 0.3 Baso % (Auto) 0.2 Neut # (Auto) 9.20 H Lymph # (Auto) 1.90 [place] # (Auto) 0.70 Eos # (Auto) 0.00 Baso # (Auto) 0.00 Abs Immat Gran (auto) 0.00 Imm/Tot Granulo (auto) 0.2 Vital Signs Vital Signs: Last Vital Signs Pulse 88 02/09/25 09:45 BP 132/81 02/09/25 09:45 Pulse Ox 100 02/09/25 09:41 Weight: 68.039 kg Height: 162.56 cm Anesthesia Procedures Epidural Insertion Patient Location: OB Start Time: 09:15 Stop Time: 09:46 Start Date: 02/09/25 Stop Date: 02/09/25 Reason for Block: procedure for pain Patient Position: sitting Performed By: Terence Kisney Preanesthetic Checklist: IV checked, risks and benefits discussed, surgical consent, monitors and equipment checked, pre-op evaluation, timeout performed and anesthesia consent Prep: chlorhexidine gluconate Monitoring: blood pressure monitoring, continuous pulse oximetry and heart rate Approach: midline Vertebral Space: lumbar (1-5) Epidural Technique: ROCHELLE air Needle Type: Tuohy needle Injection Technique: continuous catheter Needle gauge: 17 Needle Length (cm): 10 cm Needle Insertion Depth (cm): 7 Catheter Gauge: 19 Catheter Type: multi-orifice Catheter at skin depth (cm): 13 Test Dose Result: negative and lidocaine 1.5% with epinephrine 1 to 200,000
[2025-02-09] MEDS: LACTATED RINGERS 1000 ML 1,000 ML 125 ML IV (09:55)
[2025-02-09] MEDS: AZITHROMYCIN 500 MG in 0.9 % SODIUM CHLORIDE 250 ml 250 ML 255 MG IVPB (11:30)
--- NOTE | 2025-02-09 11:34 | SUR.OPER ---
no timeout called due to urgent code white and unable to pause for timeout. correct patient verified with furniture refinisher.
--- NOTE | 2025-02-09 11:45 | SUR.OPER ---
no consent obtained for due to code white emergency
--- NOTE | 2025-02-09 11:46 | P.ANES_ITS ---
Anesthesia Charges Start Date/Time Anesthesia Start Date: 02/09/25 Anesthesia Start Time: 11:21 Stop Date/Time Anesthesia Stop Date: 02/09/25 Anesthesia Stop Time: 12:33 Summary Emergency: CHIKIS Coding CPT Codes CPT Codes: ANES/ANALG CS DELIVER ADD-ON - 92630 ([id number]) P2 - PATIENT W/MILD SYST DISEASE, QK - EQUIPMENT INSTALLER 2-4 CNCRNT ANES PROC, QX - PHYSICAL THERAPY TECHNICIAN SVC W/ MD MED DIRECTION Additional Codes: Summary - Emergency: CHIKIS ([id number])
--- NOTE | 2025-02-09 11:46 | W.ANESCHARGE ---
Anesthesia Charges Start Date/Time Anesthesia Start Date: 02/09/25 Anesthesia Start Time: 11:21 Stop Date/Time Anesthesia Stop Date: 02/09/25 Anesthesia Stop Time: 12:33 Summary Emergency: CHIKIS Coding CPT Codes CPT Codes: ANES/ANALG CS DELIVER ADD-ON - 81157 ([id number]) P2 - PATIENT W/MILD SYST DISEASE, QK - LAMP INSPECTOR 2-4 CNCRNT ANES PROC, QX - REGISTRATION MANAGER SVC W/ MD MED DIRECTION Additional Codes: Summary - Emergency: CHIKIS ([id number])
--- NOTE | 2025-02-09 12:40 | P.ANES_ITS ---
Anesthesia Charges Start Date/Time Anesthesia Start Date: 02/09/25 Anesthesia Start Time: 11:21 Stop Date/Time Anesthesia Stop Date: 02/09/25 Anesthesia Stop Time: 12:33 Summary Emergency: BLOCK BREAKER OPERATOR Coding CPT Codes CPT Codes: ANES/ANALG CS DELIVER ADD-ON - 45142 ([id number]) P2 - PATIENT W/MILD SYST DISEASE, QK - DEPUTY SHERIFF 2-4 CNCRNT ANES PROC, QX - BLOCK BREAKER OPERATOR SVC W/ MD MED DIRECTION Additional Codes: Summary - Emergency: BLOCK BREAKER OPERATOR ([id number])
--- NOTE | 2025-02-09 12:40 | W.ANESCHARGE ---
Anesthesia Charges Start Date/Time Anesthesia Start Date: 02/09/25 Anesthesia Start Time: 11:21 Stop Date/Time Anesthesia Stop Date: 02/09/25 Anesthesia Stop Time: 12:33 Summary Emergency: PIPE JOINTS SUPERVISOR Coding CPT Codes CPT Codes: ANES/ANALG CS DELIVER ADD-ON - 71449 ([id number]) P2 - PATIENT W/MILD SYST DISEASE, QK - METAL MOCKUP MAKER 2-4 CNCRNT ANES PROC, QX - PIPE JOINTS SUPERVISOR SVC W/ MD MED DIRECTION Additional Codes: Summary - Emergency: PIPE JOINTS SUPERVISOR ([id number])
--- NOTE | 2025-02-09 12:42 | W.PM.NB ---
Nerve Block Nerve Block Time Seen by Provider: 12:25 Date Seen: 02/09/25 Type of block requested by surgeon for post-operative analgesia: TAP Side: bilateral Time out performed: Yes Verification of patient name: Yes Verification of date of : Yes Site marking: site marked Name of person performing procedure: mantyl Continuous monitoring Was continuous monitoring of O2 sat, B/P, electrical instrument maker, recorded every 15 minutes?: Yes Procedure Checklist: sterile prep, needles and gloves Ultrasound guided. Images saved: Yes Medications given in 5ml increments after negative aspiration: Marcaine %: 0.25 mL: 30 and Exparel mL: 10 Patient tolerated procedure well: Yes Block Charges Block Charge (with Pro Fee): TAP Bilateral Use of Ultrasound Machine for Block: Yes- US Guidance/pain block
[2025-02-09 16:48] LABS: Hematocrit 32.0 % (33.0-51.0); Hemoglobin* 10.0 gm/dL (12.0-16.0); Mean Corpuscular HGB Conc 31 gm/dL (32-36); Mean Corpuscular Hemoglobin 24 pg (26-34); Mean Corpuscular Volume 76 fL (80-100); Red Blood Count 4.20 m/uL (4.00-5.20); White Blood Count* 16.74 K/uL (4.50-11.00)
[2025-02-09 16:54] LABS: Slide Review Reflex No
--- NOTE | 2025-02-09 16:55 | P.OBPN_ITS ---
Subjective Time Seen by Provider: 10:55 Date Seen: 02/09/25 Narrative: Delay documentation due to patient care. Lisa is a 29yo at 38w2d gestation by first trimester ultrasound, who presents as a TOLAC with spontaneous onset of labor. is complicated by history of , polyhydramnios, suspected macrosomia, genital herpes on suppressive therapy, ADHD and anxiety. Patient is now comfortable with epidural in place. She continues to contract about every 2 minutes. heart rate tracing is category 1 to category 2, periods of brief and intermittent variable decelerations. She is agreeable to cervical exam. If unchanged, I did explain that I would recommend augmentation where we considered the options of Pitocin versus amniotomy. She would desire amniotomy if necessary. Objective Exam: General: Alert and oriented, in distress secondary to pain Psych: Appropriate mood affect Abdomen: Gravid, nontender. heart rate: Category 2 but overall reassuring. Baseline of 130 beats per minute, moderate variability, 10 x 10 accelerations seen, intermittent variable decelerations and a single suspected late. [place]: Froylan every 2-3 minutes Cervix: 6.5/90/-1. Bulging bag of water. Discussed recommendation for augmentation of labor due to labor dystocia in the active phase is a TOLAC. Discussed risk/benefits of amniotomy, verbal consent obtained. Amniotomy p erformed with return of meconium-stained fluid. Procedure was well tolerated and uncomplicated. Vital Signs: Last Vital Signs Temp 96.4 F L 02/09/25 13:10 Pulse 87 02/09/25 14:52 Resp 14 02/09/25 14:52 BP 112/70 02/09/25 15:20 Pulse Ox 98 02/09/25 14:52 O2 Del Method Room Air 02/09/25 13:03 Assessment Amniotic Membrane Status: AROM Plan Plan: Lisa is a 29yo at 38w2d gestation by first trimester ultrasound, who presents as a TOLAC with spontaneous onset of labor. is complicated by history of , polyhydramnios, suspected macrosomia, genital her pes on suppressive therapy, ADHD and anxiety. - Cervix is 6/80/- 2 on admission, unchanged at 2 hour recheck. Discussed options for augmentation in the setting of labor dystocia in the active phase as a TOLAC, where she consented to amniotomy after discussion of risks/benefits. Performed without complication, meconium stained fluid. Discussed recommendation for Pediatrics provider at delivery for meconium. - Blood type AB-positive - GBS negative - EFW 2915g at 94%ile on US on 01/12 - Anticipate next exam in 2 hours, sooner as clinically indicated.
[2025-02-09 17:01] LABS: Alanine Aminotransferase* 27 U/L (4-35); Aspartate Amino Transferase* 35 U/L (12-35); Blood Urea Nitrogen* 4 mg/dL (5-24); Creatinine* 0.4 mg/dL (0.5-1.5); Est. Creatinine Clearance* 182.43; Estimated Glomerular Filt Rate 139 ml/min
--- NOTE | 2025-02-09 17:01 | PM.OBPNL ---
Subjective Date Seen: 02/09/25 Narrative: Delay documentation due to patient cares. Lisa is a 29yo at 38w2d gestation by first trimester ultrasound, who presents as a TOLAC with spontaneous onset of labor. is complicated by history of , polyhydramnios, suspected macrosomia, genital herpes on suppressive therapy, ADHD and anxiety. I completed an exam at about 1050, when amniotomy was performed in the setting of labor dystocia in the active phase. Following AROM, cervix was 6.5/80/0. Meconium-stained fluid noted. Procedure was well tolerated and uncomplicated. Patient has had an intermittent category 2 heart rate tracing since admission, but overall status has been reassuring with a normal baseline, moderate variability and 10 x 10 accelerations seen. She has periods of intermittent variable decelerations and a single late appearing deceleration. I returned the bedside at 1103 in the setting of a prolonged heart rate deceleration to a german of 70bpm lasting just over 2 minutes. Patient was being repositioned, IV bolus started. status was noted to recover to a baseline of 130 beats per minute, with a variable and then a early deceleration to follow at 1106. Cervical exam completed, noted to be unchanged with no evidence of cord prolapse. There was a 2nd prolonged heart rate deceleration at 1122, to a german of 80bpm with recovery after 2.5 minutes and slight rise to the baseline noted to 140bpm. Explained concerns in FHR tracing with repetitive prolonged decelerations. At 1117 she had another deceleration to a german of 90bpm. Repeat cervical exam was performed at that time, where I noted an apparent loss of station to -1. Recommended we proceed to emergency repeat C/S in the setting of nonreassuring FHR remote from delivery, TOLAC labor and apparent loss of station given concern for potential uterine rupture. I verbally explained the risks of including bleeding, infection, damage to surrounding structures and medical complications from surgery/anesthesia (VTE, heart attack, stroke). If uterine rupture is identified, explained potential maternal and risks associated. Patient provided verbal consent to proceed. Explained to heart rate tracing is stable, on arrival to the OR we will attempt to load her epidural to proceed with regional anesthetic. If there is significant heart rate tracing concerns, plan will be to proceed under general anesthesia. Patient expressed understanding and is agreeable to plan. Plan perioperative Ancef and azithromycin. Requested lab to cross-matched patient for 2 units in the event of concern for uterine rupture. Blood type is AB-positive, active type and screen on file from admission. Pediatrics to attend delivery in the setting of code white. Objective Vital Signs: Last Vital Signs Temp 96.4 F L 02/09/25 13:10 Pulse 87 02/09/25 14:52 Resp 14 02/09/25 14:52 BP 112/70 02/09/25 15:20 Pulse Ox 98 02/09/25 14:52 O2 Del Method Room Air 02/09/25 13:03 Assessment Amniotic Membrane Status: AROM
[2025-02-09 17:41] LABS: Protein Creatinine Ratio Urine 0.16 (0-0.19)
--- NOTE | 2025-02-09 17:53 | PM.OBPRCCS ---
Procedure Time Seen by Provider: 12:30 Date of procedure: 02/09/25 Pre-op diagnosis: Non-reassuring heart tones remote from delivery, trial of labor after , apparent loss of station, genital herpes, polyhydramnios Post-op diagnosis: same Procedure Done: Global Will [facility] bill your pro fee for this procedure?: Yes Blood Loss Measurement Type: QBL (856) Bakri Used: No IV fluids (mL): 1,400 Urine Output (mL): 100 Urine Output Comment: Clear, yellow Surgeon: Arnulfo Gilliland MD Dinkey Engine Firer: Marilyn Umaña MD Anesthesia Type: Epidural Findings: Liveborn male Significant adhesive disease of the bladder to the lower uterine segment and anterior abdominal wall Unremarkable uterus Proximal right fallopian tube adhered to anterior uterus, fimbriated end free Unrmarkable left fallopian tube and ovaries Procedure Name: Repeat delivery Procedure Description: Patient was taken to the operating room with IV running. She received cefazolin and azithromycin in preoperative prophylaxis. Existing epidural was bolused for analgesia. Hernandez catheter was previously inserted. FHR was noted to be reassuring, 140bpm. She was prepped and draped in the usual sterile fashion. Anesthesia was tested and found to be adequate. A low-transverse skin incision was made with a scalpel and carried through to the underlying layer of fascia with the scalpel. The subcutaneous fat was dissected off the underlying fascia with Bovie and blunt dissection. Midline of the fascia appeared to be bulging somewhat. The fascia was nicked in the midline with a scalpel, and extended laterally with blunt dissection consistent with Teodoro-Casas technique. The rectus muscles were noted to be due to diastasis recti. Peritoneum was identified and entered bluntly. Immediate assessment of the peritoneal cavity was negative for evidence of uterine rupture. The bladder was noted to be adherent to the lower uterine segment and anterior abdominal wall, where the hernandez balloon was suspected to be the previously described bulging that was identified before peritoneal entry. The anterior abdominal wall adhesions were taken down sharply, making care to avoid the bladder itself. Jason O retractor was inserted and tightened down, providing excellent visualization of the lower uterine segment. The bladder reflection was advanced along the lower uterine segment. A bladder flap was created with a combination of sharp and blunt dissection to well below the planned hysterotomy site. Low-transverse uterine incision was made with a scalpel. Incision was widened bluntly. The 's head was grasped through the hysterotomy and elevated to the hysterotomy. The remainder of the body delivered without incident with the help of fundal pressure. No nuchal cord was noted. Vigorous noted with stimulation, weak cry. Cord was clamped and cut after 30 seconds. Infant was handed off to attending nurses and Pediatrics team. The placenta was delivered with gentle traction on the cord. The uterus was cleaned of all clots and debris with the dry lap pad x2 IV TXA was requested and administered. The hysterotomy was reapproximated with 0 Vicryl in a running, locked fashion. Second layer of the same suture was used in imbricating fashion to obtain hemostasis. Excellent uterine tone was noted. The adnexa were examined, noted to be normal in appearance aside from right fallopian tube as described above. The cul-de-sac and gutters were cleansed with dampened laparotomy sponge, removing any further clots and debris. The bladder flap was examined and made hemostatic as needed with sparing use of cautery. Hysterotomy was hemostatic. The Jason O retractor was removed. The hysterotomy was reexamined and found to be hemostatic. The rectus muscles were examined and made hemostatic with electrocautery. The fascia was reapproximated with 0 Vicryl in a running fashion. Subcutaneous fat was irrigated and Bovie used on oozing vessels. The subcutaneous fat was reapproximated with 2 0 vicryl suture in a continuous fashion. The skin was closed with a subcuticular stitch of 3-0 monocryl. Surgical glue was applied above this. Patient tolerated procedure well was taken to recovery area in stable condition. Surgical debrief was completed. details: - Liveborn male fetus - weight: 8lb 3oz - APGARs were 8 and 9 at 1 and 5 minutes respectively - Cord gas with aterial pH 7.32, CO2 53, bicarb 28, base excess 0.2 Complications: None Pathology: specimen obtained, sent to pathology Surgery Debrief Performed: Yes Condition: stable Disposition: floor [place] total score - 1 minute: 8 total score - 5 minute: 9
[2025-02-09] MEDS: ACETAMINOPHEN 500 MG TABLET 1000 MG PO (23:59)
[2025-02-10 04:09] VITALS: BP 103/66; PULSE 85; RESP 18; O2SAT 97
[2025-02-10 07:57] LABS: Hemoglobin* 9.0 gm/dL (12.0-16.0)
[2025-02-10 08:00] VITALS: BP 100/65; PULSE 85; RESP 17; TEMP 36.6; O2SAT 97
[2025-02-10] MEDS: DOCUSATE SODIUM 100 MG CAPSULE PO (08:06)
[2025-02-10] MEDS: ACETAMINOPHEN 500 MG TABLET 1000 MG PO ×3 (08:06→21:11)
[2025-02-10] MEDS: ESCITALOPRAM 10 MG TABLET 20 MG PO (08:06)
[2025-02-10] MEDS: FERROUS SULFATE 325 MG TABLET PO (12:08)
[2025-02-10 12:14] VITALS: BP 119/78; PULSE 85; RESP 17; TEMP 36.7; O2SAT 98
--- NOTE | 2025-02-10 12:29 | P.OBPN_ITS ---
OB - PN:Subj Subjective Time Seen by Provider: 09:15 Date Seen: 02/10/25 Patient comments OB post-: tolerating diet and flatus present Elizabeth infant status: bottle feeding status: exclusively bottle feeding Narrative: Subjective: Lisa is a 29-year-old 2 para 1 now 2 who is postop day 1 from a emergent repeat low-transverse for heart rate deceleratio ns and loss of station concerning for uterine rupture. She is doing well today. She states her pain is well controlled. She is tolerating regular diet. She denies nausea/vomiting. She is urinating without difficulty. Has had adequate urine output. She has been ambulating without difficulty. She is passing flatus. Bottle feeding. Objective: General: Pleasant, , well groomed woman in no acute distress. Vital signs: Per electronic medical record Heart: Regular rate and rhythm without gallop, rub or murmur. Chest: Clear to auscultation bilaterally. Abdomen: Soft, nontender, mildly distended. No CVA or flank tenderness. Fundus is firm, 1 cm below the umbilicus in the midline. Incision: Silver-containing dressing in place and dry. Extremities: No pain or edema Assessment: 29-year-old postoperative day# 1 from a repeat low-transverse C- section. Plan: 1. Continue routine postop care. 2. Planning discharge home tomorrow. 3. Postop hemoglobin was 9.0 this morning and iron supplementation started. OB - PN: Obj Exam Physical Exam: Vital signs: Temp Pulse Resp BP Pulse Ox O2 Del Method 98.1 F 85 17 119/78 98 Room Air 02/10/25 12:14 02/10/25 12:14 02/10/25 12:14 02/10/25 12:14 02/10/25 12:14 02/10/25 12:14 OB - PN: Obj Data Labs Labs: Laboratory Results - last 24 hr 02/09/25 02/09/25 02/10/25 16:40 17:00 07:23 WBC 16.74 H RBC 4.20 Hgb 10.0 L 9.0 L Hct 32.0 L MCV 76 L MCH 24 L MCHC 31 L Plt Count 165 BUN 4 L Creatinine 0.4 L Estimated Creat Clear 182.43 Estimated GFR 139 AST 35 ALT 27 Urine Creatinine 31.9 Protein/Creatinin Ratio 0.16 Urine Total Protein < 5 OB - PN: A/P Delivery Assessment and Plan (1) Polyhydramnios: Status: Acute (2) History of delivery: Status: Acute (3) : Status: Acute (4) Genital herpes: Status: Acute
[2025-02-10 17:22] VITALS: BP 111/70; PULSE 85; RESP 16; TEMP 36.7; O2SAT 98
[2025-02-10] MEDS: IBUPROFEN 600 MG TABLET PO (21:11)
[2025-02-10 21:13] VITALS: BP 113/76; PULSE 82; RESP 18; O2SAT 97
[2025-02-11] MEDS: IBUPROFEN 600 MG TABLET PO (03:56)
[2025-02-11] MEDS: ACETAMINOPHEN 500 MG TABLET 1000 MG PO ×2 (03:56→10:06)
[2025-02-11 03:58] VITALS: BP 107/72; PULSE 83; RESP 15; O2SAT 97
--- NOTE | 2025-02-11 08:10 | P.DS_ITS ---
DS: Providers Provider Time Seen by Provider: 07:50 Date Seen: 02/11/25 Date of admission: 02/09/25 09:13 Primary care physician: Karen Haas MD Admitting Clinician: Zeina Gilliland MD Attending Physician on discharge: Aurea Corona MD Date of Discharge: 02/11/25 DS: Diagnosis Discharge Diagnosis (1) Status post repeat low transverse section: Status: Acute Problem details: Code White. Christensen. Apgars 8/9. 8 lb 3 oz. Exam Narrative: Exam Narrative: GENERAL APPEARANCE: Pleasant, [race], well-groomed woman in no acute distress. VITAL SIGNS: as noted in nursing notes HEAD: Normocephalic, atraumatic. THYROID: no masses, nodularity, tenderness or enlargement. LUNGS: Clear to auscultation bilaterally without wheezes, rales or rhonchi. HEART: Regular rate and rhythm with normal S1 and S2. No gallop, rub or murmur. ABDOMEN: Gravid. Soft, nontender, nondistended, with normal bowels sounds throughout. Fundus firm at 1 cm below the umbilicus in the midline. INCISION: Clean, dry and intact with sutures and skin adhesive gel. EXTREMITIES: No cyanosis, clubbing, or edema. No varicosities. NEUROLOGIC: Normal gait and balance. Normal deep tendon reflexes at bilateral patella 2+/2, equal without clonus. PSYCHIATRIC: alert and oriented x3. Normal speech pattern, eye contact and affect. SKIN: Warm, dry, and well perfused. Good turgor. No lesions, nodules or rashes. Const: Vital Signs, click to edit/add: Vital Signs - 24 hr 02/10/25 12:14 02/10/25 17:22 02/10/25 21:13 Temperature 98.1 F 98.0 F Pulse Rate [Pulse Oximeter] 85 85 82 Respiratory Rate 17 16 18 Blood Pressure [Ri ght Arm] 119/78 111/70 113/76 Pulse Oximetry 98 98 97 Oxygen Delivery Me thod Room Air Room Air Room Air 02/11/25 03:58 Temperature Pulse Rate [Pulse Oximeter] 83 Respiratory Rate 15 Blood Pressure [Ri ght Arm] 107/72 Pulse Oximetry 97 Oxygen Delivery Me thod Room Air OB - DS: Summary Hospital Course Hospital Course: Lisa is a 29 year old G 2 P 1 now 2 at 38 and 2/7 weeks gestation that was admitted to the Center on 02/09/25 for spontaneous onset of labor. She was planning a TOLAC but had heart rate decelerations an apparent loss of station so a code white was called but an epidural was used for anesthesia. No evidence of uterine rupture at the time of surgery. She had an uncomplicated delivery. She delivered a viable male infant. She is bottle feeding. the patient has done well. She had anemia with a hemoglobin of 9.0. Iron supplementation was ordered. Peripartum Data delivery method: Repeat Section Procedures: Procedures Operation Date: 02/09/25 11:30 Actual Procedure Side Surgeon p Repeat Section Not Applicable Zeina Gilliland MD Infant Gender: Male Time Spent with Patient Time attestation: Total time spent providing and/or coordinating discharge services: Discharge Plan Discharge Disposition: Home, Self-Care Date of Admission: 02/09/25 09:13 Attending Provider on Discharge: Aurea Campos Primary Care Provider: Karen Haas Condition: Stable Anticipated Discharge Date/Time: 02/11/25 12:30 Discharge Medications: New docusate sodium 100 mg Capsule 100 mg PO BID PRN (Reason: constipation) Qty: 100 0RF ferrous sulfate 325 mg (65 mg iron) Tablet 325 mg PO Q48H Qty: 50 0RF ibuprofen 600 mg Tablet 600 mg PO Q6H PRN (Reason: Pain) Qty: 30 0RF oxycodone 5 mg Tablet 5 mg PO 3XD PRN (Reason: Pain) Qty: 21 0RF Continued escitalopram oxalate [Lexapro] 20 mg tablet 20 mg PO QDAY DHA 200 mg capsule 200 mg PO DAILY dextroamphetamine-amphetamine [Adderall XR] 10 mg capsule,extended release 24hr 10 mg PO QAM Qty: 30 0RF Discontinued valacyclovir [Valtrex] 1 gram tablet 1,000 mg PO QDAY Qty: 30 0RF Discharge Orders: Discharge Order (Routine); Ordered 02/11/25 Ordered By: Aurea Campos Patient Education: (DC) Additional Instructions: ACTIVITY RESTRICTIONS: Lifting Restrictions: 20 pounds for 6 weeks Do not submerge incision under water X 2 weeks? Nothing vaginally for 6 weeks: no tampons or intercourse Do not drive while taking narcotic pain medication(s): 1-2 weeks No high impact or core exercises: 6 weeks Off Work or School for for a minimum of 8 weeks NO RESTRICTIONS FOR: Climbing stairs Walking Being a passenger in a motor vehicle SYMPTOMS TO REPORT TO DOCTOR: * Bleeding that saturates more than one pad per hour * Passing clots larger than the size of a golf ball * Pain not relieved by prescribed medication * Fever above 100.4 degrees Fahrenheit * A foul vaginal odor * Difficulty in emotions, mood, and functions * Thoughts of hurting yourself and/or * Painful, reddened area in your breast * Any drainage, redness, or tenderness in your IV/epidural sites or incision. * Severe headache that doesn't improve after taking medications * Changes in vision, including temporary loss of vision, blurred vision, and/or light sensitivity * Upper abdominal pain (usually under ribs on the right side) * Decrease in urination or painful, frequent urinating * Chest pain * Shortness of breath * Tenderness or pain with redness and/swelling in the calf(s) of your leg Follow-up appointments: Optional 2-week visit: incision check, discuss infant feeding concerns, review control options and screen for anxiety/depression. 6-week visit for an annual exam. FOR PAIN 1. Ibuprofen 600mg every 6hr 2. ES Tylenol 2 tablets (1,000mg) every 6hr. 3. Alternate the above medications every 3 hr. For example: Ibuprofen at 8am, Tylenol at 11am, Ibuprofen at 2pm, Tylenol at 5pm, etc. 4. Add oxycodone 1-2 tablets up to 3x/day if needed for breakthrough pain consultation services are available to all mothers and babies for the first year after delivery.? To make an appointment, please call [phone]. Activity Level: Other Follow Up Appointments: Karen Haas MD [Primary Care Provider, Family Practice] Forms: [employer] Info Instructions
[2025-02-11 08:42] VITALS: BP 107/72; PULSE 89; RESP 16; TEMP 36.7; O2SAT 97
[2025-02-11] MEDS: ESCITALOPRAM 10 MG TABLET 20 MG PO (08:44)
[2025-02-11] MEDS: DOCUSATE SODIUM 100 MG CAPSULE PO (08:44)
== END 2025-02-11 10:45 | disposition home or self-care (01) | DRG 540 ==
LOC: OB OUT 09:14 → OB 09:14
PROVIDERS: Obstetrics & Gynecology; Admitting Provider Obstetrics & Gynecology; PCP Family Medicine; Referring Provider Obstetrics & Gynecology; Visit Provider Obstetrics & Gynecology
PROC: 10D00Z1 Extraction of Products of Conception, Low, Open Approach (ICD-10-PCS; CPT 59514; principal; 2025-02-09 11:30)
DX: O34.211 Maternal care for low transverse scar from previous cesarean delivery (principal); O75.82 Onset (spontaneous) of labor after 37 completed weeks of gestation but before 39 completed weeks gestation, with delivery by (planned) cesarean section; O76 Abnormality in fetal heart rate and rhythm complicating labor and delivery; O77.0 Labor and delivery complicated by meconium in amniotic fluid; G89.18 Other acute postprocedural pain; O40.3XX0 Polyhydramnios, third trimester, not applicable or unspecified; O98.32 Other infections with a predominantly sexual mode of transmission complicating childbirth; A60.00 Herpesviral infection of urogenital system, unspecified; O99.344 Other mental disorders complicating childbirth; F41.9 Anxiety disorder, unspecified; F90.9 Attention-deficit hyperactivity disorder, unspecified type; Z37.0 Single live birth; Z3A.38 38 weeks gestation of pregnancy
CPT/HCPCS: 01967; 01968; 36415; 64488; 76942; 82565; 82570; 84156; 84450; 84460; 84520; 85018; 85025; 85027; 86592; 86850; 86900; 86901; 86922; 88307; 99140; A4314; A9270; J0456; J0665; J0666; J0690; J1100; J1885; J2371; J2405; J2590; J2795; J3010; J7050; J7120